=== PATIENT | male | born 2005 | race Caucasian/White ===

== ENCOUNTER 2024-01-08 23:36 | Emergency (ER) | payer BC, SELFPAY ==
[2024-01-08 23:54] VITALS: BP 144/100; PULSE 99; RESP 16; TEMP 36.9; O2SAT 96; BMI 30.4
[2024-01-09 00:11] LABS: Amphetamine Screen Urine Negative (Negative); Barbiturate Screen Urine Negative (Negative); Benzodiazepines Screen Urine Negative (Negative); Cannabinoid Screen Urine Negative (Negative); Cocaine Screen Urine Negative (Negative); Methadone Screen Urine Negative (Negative); Methamphetamines Screen Urine Negative (Negative); Opiate Screen Urine Negative (Negative); Oxycodone Screen Urine Negative (Negative); Phencyclidine Screen Urine Negative (Negative); Tricyclic Antidepressant Urine Negative (Negative)
[2024-01-09 00:30] LABS: SARS PCR* Negative SARS-CoV-2 (Negative)
--- OUTSIDE RECORDS SUMMARY | 2024-01-09 00:33 | XMS_ITS | Continuity of Care Document ---
Author Organization [facility] Address [address] [place] [address] Care Team Providers Care Analytical Research Chemist Name Role Phone [facility] Primary Care Provider Assessment No assessment recorded. Plan of Treatment Reminders Order Date Submit Date Provider Last Modified By Organization Details Last Modified Time Details Appointments ESTABLISH ED 10 2023 03:40P M Not available Not available Not available Lab urinalysi s, dipstick 2023 024 [facility], [facility], [place] [address], [place], [address], 12/24/2023 16:38:45 Referral None recorded. Procedures bladder scan (PROC) 2023 024 [facility], [facility], [address] [facility], [place], [address], 12/24/2023 16:38:43 Surgeries None recorded. Imaging None recorded. Medication Orders oxybutyni n chloride ER 10 mg tablet,ex tended release 24 hr 2023 024 [facility], [address] [place] [address], [place], [address], 12/24/2023 17:18:44 Patient TargetsNo targets recorded. Patient Instructions Encounter Date Encounter Id Patient Instructions Last Modified By Organization Details Last Modified Time 12/24/2023 [id number] will try adding oxybutynin ER 10mg daily continue gemtesa and plan recheck in 6 weeks. Not available 12/24/2023 16:57:40 Reason for Referral None Reported. Results Created Date Observation Date Name Description Value Unit Range Abnormal Flag LastModifiedBy Organization Detail LastModifiedTime 12/24/19 24 12/24/2023 bladd er scan (PROC ) Volume (in mL) 89 Not Available [address], [place], [address], 12/13/2023 10:44:18 12/24/19 24 12/24/2023 urina lysis , dipst ick Color-Status Yellow Not Available [address], [place], [address], 12/13/2023 10:44:17 12/24/19 24 12/24/2023 urina lysis , dipst ick Clarity-Stat us Clear Not Available [address], [place], [address], 12/13/2023 10:44:17 12/24/19 24 12/24/2023 urina lysis , dipst ick Sp [place]-Stat us 1.020 Not Available [address], [place], [address], 12/13/2023 10:44:17 12/24/19 24 12/24/2023 urina lysis , dipst ick pH-Status 6.5 Not Available [address], [place], [address], 12/13/2023 10:44:17 12/24/19 24 12/24/2023 urina lysis , dipst ick Nitrates-Sta tus negati ve Not Available [address], [place], [address], 12/13/2023 10:44:17 12/24/19 24 12/24/2023 urina lysis , dipst ick Blood-Status Negati ve Not Available [address], [place], [address], 12/13/2023 10:44:17 12/24/19 24 12/24/2023 urina lysis , dipst ick Leuko-Status Negati ve Not Available [address], [place], [address], 12/13/2023 10:44:17 12/24/19 24 12/24/2023 urina lysis , dipst ick Specimen Type Voided Not Available [address], [place], [address], 12/13/2023 10:44:17 Result Notes None recorded. Problems Name Status Onset Date Resolution Date Notes Provider Name and Address Organization Details Recorded Time Varicocele visible through skin Active 02/23/20 23 Moody Dawn MD [address] [place] [address], [phone], [facility] 02/22/2023 16:54:19 Nocturnal enuresis Active 11/14/19 24 Danny Pickard MD [address] [place] [address], [address], [facility] 11/14/2023 10:21:45 Problem Notes None recorded. Procedures Surgical History Date Name Laterality Status Provider Name and Address Organization Details Recorded Time Bladder Scan completed Danny Pickard MD [address] [place] [address], [address], [facility] 12/24/2023 16:37:09 Imaging Results None recorded. Procedure Notes None recorded. Medical Equipment None Reported. Allergies No known drug allergies Medications Name Sig Start Date Stop Date Status Note LastModified by Organization Details LastModified Time amoxicillin 500 mg capsule TAKE ONE CAPSULE BY MOUTH THREE TIMES DAILY UNTIL GONE. 02/22 completed Not Available Not Available Not Available oxybutynin chloride ER 10 mg tablet,exte nded release 24 hr TAKE ONE TABLET BY MOUTH EVERY DAY FOR 30 DAYS active Not Available Not Available No t Available ibuprofen 800 mg tablet TAKE ONE TABLET BY MOUTH EVERY 6-8 HOURS NEEDED FOR PAIN 02/22 completed Not Available Not Available Not Available citalopram 10 mg tablet TAKE 1 TABLET BY MOUTH DAILY FOR 6 DAYS. THEN INCREASE TO 2 TABLETS DAILY 02/22 completed Not Available Not Available Not Available hydrocodone 5 mg-acetamin ophen 325 mg tablet TAKE ONE TABLET BY MOUTH EVERY 4 TO 6 HOURS NEEDED FOR PAIN NOT RELIEVED WITH NSAIDS 02/22 completed Not Available Not Available Not Available desmopressi n 0.2 mg tablet TAKE TWO TABLETS BY MOUTH ONE HOUR BEFORE BED 11/13 completed Not Available Not Available Not Available sertraline 100 mg tablet TAKE 1 TABLET (100 MG) BY MOUTH EVERY MORNING. active Not Available Not Available No t Available citalopram 20 mg tablet TAKE 1 TABLET (20 MG) BY MOUTH EVERY MORNING. 11/13 completed Not Available Not Available Not Available methylpredn isolone 4 mg tablets in a dose pack TAKE DIRECTED. START A.M. OF 07/06/2202/22 completed Not Available Not Available Not Available sertraline 50 mg tablet TAKE 1 TABLET (50 MG) BY MOUTH EVERY MORNING. 11/13 completed Not Available Not Available Not Available Vitamin D3 50 mcg (2,000 unit) capsule Take 2 capsules by oral route. active Not Available Not Available No t Available Gemtesa 75 mg tablet Take 1 tablet every day by oral route. active Not Available Not Available No t Available Vitals Date Recorded Body height Body mass index (BMI) Percentile per age and sex Body mass index (BMI) Body weight Provider Name and Address Organization Details Last Updated DateTime 12/24/2023 175.26 cm 94 % 29.5 kg/m2 35234.47 g Danny Pickard MD [address] [place] [address],[address], [place], [address], [facility] 12/24/2023 16:35:21 Social History Question Answer Notes LastModified by Organizat ion Details LastModified Time Tobacco Smoking Status Never [facility]/22/2023 15:33:50 What Is Your Level Of Alcohol Consumption? None Information not available 02/22/2023 What Is Your Level Of Caffeine Consumption? Heavy [email or web address] Information not available 11/14/2023 What Was The Date Of Your Most Recent Tobacco Screening? 12/24/2023 [email or web address] Information not available 12/24/2023 Do You Use Any Illicit Or Recreational Drugs? No Information not available 02/22/2023 Has Tobacco Cessation Counseling Been Provided? No Information not available 02/22/2023 Do You Or Have You Ever Used Any Other Forms Of Tobacco Or Nicotine? No Information not available 02/22/2023 Sex: Unknown Functional Status None recorded. Mental Status None recorded. Family History Relationship Description Onset Age of this Age Resolved Age Notes Maternal Grandmother Malignant melanoma Notes:None per patient Medical History Condition Response Sexually Transmitted Infection N Diabetes N Other N Bleeding Disorder N High Blood Pressure N Kidney Stones N High Cholesterol N GERD/Acid Reflux N Heart Disease N Cancer N Depression Y Lung Disease N Immunizations Vaccine Type Date Status Provider Name and Address Organization Details Recorded Time HPV9 12/02/2015 completed Maddison viveros [facility] 06/14/2023 15:18:28 HPV9 12/14/2016 completed Maddison viveros [facility] 06/14/2023 15:18:28 MMR 09/17/2005 completed Maddison viveros [facility] 06/14/2023 15:18:28 [facility] 09/20/2009 completed Maddison viveros [facility] 06/14/2023 15:18:28 COVID-19, mRNA, LNP-S, PF, 30 mcg/0.3 mL dose 09/29/2020 completed Maddison viveros [facility] 06/14/2023 15:18:28 COVID-19, mRNA, LNP-S, PF, 30 mcg/0.3 mL dose 10/20/2020 ashley viveros [facility] 06/14/2023 15:18:28 COVID-19, mRNA, LNP-S, PF, 30 mcg/0.3 mL dose, kayli-sucrose 07/24/2021 completed Maddison viveros, [facility] 06/14/2023 15:18:28 pneumococcal conjugate PCV 7 2004 completed Maddison Faustin null, [facility] 06/14/2023 15:18:28 pneumococcal conjugate PCV 7 12/24/2005 completed Maddison Faustin null, [facility] 06/14/2023 15:18:28 pneumococcal conjugate PCV 7 01/12/2005 completed Maddison Faustin null, [facility] 06/14/2023 15:18:28 pneumococcal conjugate PCV 7 03/30/2005 completed Maddison Faustin null, [facility] 06/14/2023 15:18:28 DTaP-IPV 09/20/2009 completed Maddison viveros, [facility] 06/14/2023 15:18:28 Tdap 12/02/2015 completed Maddison viveros, [facility] 06/14/2023 15:18:28 varicella 09/17/2005 completed Maddison viveros, [facility] 06/14/2023 15:18:28 varicella 09/20/2009 completed Maddison viveros, [facility] 06/14/2023 15:18:28 Influenza, split virus, trivalent, preservative 04/01/2006 completed Maddison viveros, [facility] 06/14/2023 15:18:28 Influenza, split virus, trivalent, preservative 04/29/2006 completed Maddison Faustin null, [facility] 06/14/2023 15:18:28 Hep A, ped/adol, 2 dose 10/09/2013 [facility] 15:18:28 Hep A, ped/adol, 2 dose 11/09/2011 completed Maddison viveros, [facility] 06/14/2023 15:18:28 [facility]OMP) 2004 [facility] 15:18:28 Hib (PRP-OMP) 12/24/2005 completed Maddison Herreradimpleauer null, [facility] 06/14/2023 15:18:28 Hib (PRP-OMP) 01/12/2005 completed Maddison Herreradimpleauer null, [facility] 06/14/2023 15:18:28 Meningococcal MCV4O 12/02/2015 completed Maddison Herreradimpleauer null, [facility] 06/14/2023 15:18:28 Meningococcal MCV4O 01/19/2022 completed Maddison Herrerarbauer null, [facility] 06/14/2023 15:18:28 DTaP 12/24/2005 completed Maddison Herreradimpleauer null, [facility] 06/14/2023 15:18:28 DTaP-Hep B-IPV 2004 completed Maddison Herreradimpleauer null, [facility] 06/14/2023 15:18:28 DTaP-Hep B-IPV 01/12/2005 completed Maddison Herreradimpleauer null, [facility] 06/14/2023 15:18:28 DTaP-Hep B-IPV 03/30/2005 completed Maddison Herreradimpleauer null, [facility] 06/14/2023 15:18:28 Influenza, split virus, quadrivalent, PF 01/19/2022 completed Maddison Herreradimpleauer null, [facility] 06/14/2023 15:18:28 Influenza, split virus, quadrivalent, PF 02/01/2023 completed Maddisonadam Herreradimpleauer null, [facility] 06/14/2023 15:18:28 Past Encounters Encounter ID Performer Location Encounter Start Date Encounter Closed Date Diagnosis/Indication Diagnosis SNOMED-CT Code [id number] Danny Pickard MD _[facility] e [facility] [address] [place] [address] 12/24/2023 15:54:41 12/30/2023 15:39:13 Varicocele visible through skin [id number] Nocturnal enuresis 27946 08 Health Concerns Section Related Observation LastModified by Organization Detai ls LastModified Time None Recorded Concern Status LastModified by Organization Details LastModified Time None Recorded Payers Encounter Date Sequence Insurance Name Policy Number Policy Jewell Covered Member ID Jewell Member ID Guarantor Name 12/24/2023 1 [place] [id number] Amparo Betancourt [id number] Dave Betancourt Notes Date Note Type Note Provider Name and Address Organization Details Recorded Time 12/24/2023 text/html HPI Notes: follow up enuresis, daytime doing fine and wetting most nights. taking gemtesa samples UA clear and PVR 89ml today. Danny Pickard MD [address] [place] [address],[facility] [address], [place], [address], [facility] 12/24/2023 16:57:55
--- OUTSIDE RECORDS SUMMARY | 2024-01-09 00:33 | XMS_ITS | Data Portability ---
Author Organization [place] [facility] Address [address] [facility] [address] [place] [address] Care Team Providers Care Insurance Claim Auditor Name Role Phone [facility]) Primary Care Provider Assessment No assessment recorded. Plan of Treatment Reminders Order Date Submit Date Provider Last Modified By Organization Details Last Modified Time Details Appointments ESTABLISH ED 10 2023 03:40P M Not available Not available Not available Lab urinalysi s, dipstick 2023 024 [email or web address] [facility], [facility], [address] [facility], [place], [address], 11/14/2023 10:24:22 urinalysi s, dipstick 2023 024 [facility], [facility], [address], [place], [address], 12/24/2023 16:38:45 Referral None recorded. Procedures bladder scan (PROC) 2023 024 SANDEEP [facility], [address] [facility], [address], [place], [address], 11/18/2023 09:40:55 bladder scan (PROC) 2023 024 [facility], [facility], [address], [place], [address], 12/24/2023 16:38:43 Surgeries None recorded. Imaging US, duplex, scrotum, complete 2022 [facility], [address], [place], [address], 06/14/2023 13:19:04 Medication Orders oxybutyni n chloride ER 10 mg tablet,ex tended release 24 hr 2023 [facility], [address], [place], [address], 12/24/2023 17:18:44 Patient TargetsNo targets recorded. Patient Instructions Encounter Date Encounter Id Patient Instructions Last Modified By Organization Details Last Modified Time 02/22/2023 [id number] Exam suggests left varicocele. I've asked Dave to continue self-exams and we'll update a scrotal US in 3 months, and have them assess the mass found with duplex, to confirm my exam findings. Reassurance given. I'll see him for repeat exam after US performed. Not available 02/22/2023 16:55:38 06/14/2023 [id number] Unchanged exam, unbothered patient, reassuring / unchanged imaging. We reviewed elective excision (just because), but neither he nor I have a meaningful reason to do it. He'll observe, serially examine, optional repeat US / exam with me in Feb 2024, sooner should things change. Not available 06/14/2023 15:38:38 11/14/2023 [id number] will try gemtesa and recheck in 6 weeks. [email or web address] Not available 11/14/2023 11:13:37 12/24/2023 [id number] will try adding oxybutynin ER 10mg daily continue gemtesa and plan recheck in 6 weeks. [email or web address] Not available 12/24/2023 16:57:40 Reason for Referral None Reported. Results Created Date Observation Date Name Description Value Unit Range Abnormal Flag LastModifiedBy Organization Detail LastModifiedTime 11/14/19 24 11/14/2023 urina lysis , dipst ick Sp Palmetto-Stat us >=1.03 0 Not Available [address], [place], [address], 11/14/2023 10:15:21 11/14/19 24 11/14/2023 urina lysis , dipst ick pH-Status 5.5 Not Available [address], [place], [address], 11/14/2023 10:15:21 11/14/19 24 11/14/2023 urina lysis , dipst ick Urobilinogen -Status 0.2 Not Available [address], [place], [address], 11/14/2023 10:15:21 11/18/19 24 11/18/2023 bladd er scan (PROC ) Volume (in mL) 166 mL Not Available [address], [place], [address], 11/14/2023 10:21:56 12/24/19 24 12/24/2023 bladd er scan (PROC ) Volume (in mL) 89 Not Available [address], [place], [address], 12/13/2023 10:44:18 12/24/19 24 12/24/2023 urina lysis , dipst ick Color-Status Yellow Not Available [address], [place], [address], 12/13/2023 10:44:17 12/24/19 24 12/24/2023 urina lysis , dipst ick Clarity-Stat us Clear Not Available [address], [place], [address], 12/13/2023 10:44:17 12/24/19 24 12/24/2023 urina lysis , dipst ick Sp Palmetto-Stat us 1.020 Not Available [address], [place], [address], 12/13/2023 10:44:17 12/24/19 24 12/24/2023 urina lysis , dipst ick pH-Status 6.5 Not Available [address], [place], [address], 12/13/2023 10:44:17 12/24/19 24 12/24/2023 urina lysis , dipst ick Nitrates-Sta tus negati ve Not Available [address], [place], [address], 12/13/2023 10:44:17 12/24/19 24 12/24/2023 urina lysis , dipst ick Blood-Status Negati ve Not Available [address], [place], [address], 12/13/2023 10:44:17 12/24/19 24 12/24/2023 urina lysis , dipst ick Leuko-Status Negati ve Not Available [address], [place], [address], 12/13/2023 10:44:17 12/24/19 24 12/24/2023 urina lysis , dipst ick Specimen Type Voided Not Available [address], [place], [address], 12/13/2023 10:44:17 02/21/20 23 02/12/2023 US, scrot um No observ ation record ed. Not Available 02/20/2023 11:48:11 05/16/20 23 05/16/2023 US, scrot um No observ ation record ed. SANDEEP Damari Guardadofield [address] [facility], [place], [address], 05/17/2023 12:02:22 06/14/19 24 05/16/2023 US, duple x, scrot um, compl ete No observ ation record ed. [email or web address] [address] [facility], [place], [address], 06/14/2023 13:19:04 Result Notes None recorded. Problems Name Status Onset Date Resolution Date Notes Provider Name and Address Organization Details Recorded Time Varicocele visible through skin Active 02/23/20 23 Moody Dawn MD [address] [place] [address],[address], [address], [facility] 02/22/2023 16:54:19 Nocturnal enuresis Active 11/14/19 24 Danny Pickard MD [address] [place] [address],[facility] [address], [place], [address], [facility] 11/14/2023 10:21:45 Problem Notes None recorded. Procedures Surgical History Date Name Laterality Status Provider Name and Address Organization Details Recorded Time Bladder Scan completed Danny Pickard MD [address] [place] [address],[facility] [address], [place], [address], [facility] 12/24/2023 16:37:09 Imaging Results Imaging Date Name Status LastModified by Organiz ation Details LastModified Time 02/12/2023 US, scrotum completed Information n ot available 02/20/2023 11:48:11 05/16/2023 US, scrotum completed SANDEEP Guardado ield [address] [facility], [place], [address], 05/17/2023 12:02:22 05/16/2023 US, duplex, scrotum, complete completed [email or web address] [facility] [address], [place], [address], 06/14/2023 13:19:04 Procedure Notes None recorded. Medical Equipment None [...] Recorded Body height Body mass index (BMI) Body mass index (BMI) Percentile per age and sex Body weight Provider Name and Address Organization Details Last Updated DateTime 02/22/2023 172.72 cm 30.4 kg/m2 97 % 67627.47 g Valerie Gaspar [facility] 02/22/2023 15:32:32 Date Recorded Body height Body mass index (BMI) Body mass index (BMI) Percentile per age and sex Body weight Provider Name and Address Organization Details Last Updated DateTime 06/14/2023 172.72 cm 30.4 kg/m2 95.54 % 73495.47 g Maddison Herrerasailaja [facility] 06/14/2023 15:18:23 Date Recorded Body height Body mass index (BMI) Percentile per age and sex Body mass index (BMI) Body weight Provider Name and Address Organization Details Last Updated DateTime 11/14/2023 175.26 cm 94 % 29.5 kg/m2 75217.47 g Danny Pickard MD [address] [place] [address] 11/14/2023 10:00:28 Date Recorded Body height Body mass index (BMI) Percentile per age and sex Body mass index (BMI) Body weight Provider Name and Address Organization Details Last Updated DateTime 12/24/2023 175.26 cm 94 % 29.5 kg/m2 48133.47 g Danny Pickard MD [address] [place] [address],[address] 12/24/2023 16:35:21 Social History Question Answer Notes LastModified by Organizat ion Details LastModified Time Tobacco Smoking Status Never [facility]oker [facility] 15:33:50 What Is Your Level Of Alcohol Consumption? None Information not available 02/22/2023 What Is Your Level Of Caffeine Consumption? Heavy Information not available 11/14/2023 What Was The Date Of Your Most Recent Tobacco Screening? 12/24/2023 [email or web address] Information not available 12/24/2023 Do You Use [...] Notes:None per patient Medical History Condition Response Diabetes N Sexually Transmitted Infection N Other N Bleeding Disorder N High Blood Pressure N Kidney Stones N Cancer N Lung Disease N Depression Y High Cholesterol N GERD/Acid Reflux N Heart Disease N Immunizations Vaccine Type Date Status Provider Name and Address Organization Details Recorded Time HPV9 12/02/2015 completed Maddison viveros [facility] 06/14/2023 15:18:28 HPV9 12/14/2016 [facility]23 15:18:28 MMR 09/17/2005 [facility] 15:18:28 MMR 09/20/2009 completed Maddison viveros [facility] 06/14/2023 15:18:28 COVID-19, mRNA, LNP-S, PF, 30 mcg/0.3 mL dose 09/29/2020 completed Maddison viveros [facility] 06/14/2023 15:18:28 COVID-19, mRNA, LNP-S, PF, 30 mcg/0.3 mL dose 10/20/2020 completed Maddison viveros [facility] 06/14/2023 15:18:28 COVID-19, mRNA, LNP-S, PF, 30 mcg/0.3 mL dose, kayli-sucrose 07/24/2021 completed Maddison viveros [facility] 06/14/2023 15:18:28 pneumococcal conjugate PCV 7 2004 [facility]23 15:18:28 pneumococcal conjugate PCV 7 12/24/2005 completed Maddison viveros [facility] 06/14/2023 15:18:28 pneumococcal conjugate PCV 7 01/12/2005 [facility] 15:18:28 pneumococcal conjugate PCV 7 03/30/2005 completed Maddison Faustin null, [facility] 06/14/2023 15:18:28 DTaP-IPV 09/20/2009 completed Maddison Faustin null, [facility] 06/14/2023 15:18:28 Tdap 12/02/2015 completed Maddison Faustin null, [facility] 06/14/2023 15:18:28 varicella 09/17/2005 completed Maddison Faustin null, [facility] 06/14/2023 15:18:28 varicella 09/20/2009 completed Maddison Faustin null, [facility] 06/14/2023 15:18:28 Influenza, split virus, trivalent, preservative 04/01/2006 completed Maddison Faustin null, [facility] 06/14/2023 15:18:28 Influenza, split virus, trivalent, preservative 04/29/2006 completed Maddison Faustin null, [facility] 06/14/2023 15:18:28 Hep A, ped/adol, 2 dose 10/09/2013 completed Maddison Faustin null, [facility] 06/14/2023 15:18:28 Hep A, ped/adol, 2 dose 11/09/2011 completed Maddison Faustin null, [facility] 06/14/2023 15:18:28 Hib (PRP-OMP) 2004 completed Maddison Faustin null, [facility] 06/14/2023 15:18:28 Hib (PRP-OMP) 12/24/2005 completed Maddison Mosesauer null, [facility] 06/14/2023 15:18:28 Hib (PRP-OMP) 01/12/2005 completed Maddison Faustin null, [facility] 06/14/2023 15:18:28 Meningococcal MCV4O 12/02/2015 completed Maddison Faustin null, [facility] 06/14/2023 15:18:28 Meningococcal MCV4O 01/19/2022 completed [facility]ustin null, [facility] 06/14/2023 15:18:28 DTaP 12/24/2005 completed Maddison Ramin jackeline, [facility] 06/14/2023 15:18:28 DTaP-Hep B-IPV 2004 completed Maddison Ramin jackeline, [facility] 06/14/2023 15:18:28 DTaP-Hep B-IPV 01/12/2005 completed Maddison Ramin null, [facility] 06/14/2023 15:18:28 DTaP-Hep B-IPV 03/30/2005 completed Maddison Ramin null, [facility] 06/14/2023 15:18:28 Influenza, split virus, quadrivalent, PF 01/19/2022 completed Maddison Ramin jackeline, [facility] 06/14/2023 15:18:28 Influenza, split virus, quadrivalent, PF 02/01/2023 completed Maddison Ramin jackelien, [facility] 06/14/2023 15:18:28 Past Encounters Encounter ID Performer Location Encounter Start Date Encounter Closed Date Diagnosis/Indication Diagnosis SNOMED-CT Code [id number] Moody Dawn MD _[place] [address] [place] [address] 02/22/2023 15:05:16 02/28/2023 12:02:18 Varicocele visible through skin 776919668 [id number] Moody Dawn MD [facility] [address] [place] [address] 06/14/2023 15:14:28 06/14/2023 15:42:51 Varicocele visible through skin 429849589 [id number] Danny Pickard MD [facility] [address] [facility],[address] [place] [address] 11/14/2023 09:47:56 11/15/2023 09:03:26 Varicocele visible through skin 165120389 Nocturnal enuresis 96675 08 [id number] Danny Pickard MD [facility] [address] [facility],[address] [place] [address] 12/24/2023 15:54:41 12/30/2023 15:39:13 Varicocele visible through skin 575557139 Nocturnal enuresis 90871 08 Health Concerns Section Related Observation LastModified by Organization Detai ls LastModified Time None Recorded Concern Status LastModified by Organization Details LastModified Time None Recorded Advance Directives Directive None Recorded Payers Encounter Date Sequence Insurance Name Policy Number Policy Jewell Covered Member ID Jewell Member ID Guarantor Name 02/22/2023 2 [place] [id number] Dave De La Rosa Betancourt [id number] Dave Betancourt 02/22/2023 1 [place] [id number] Amparo Rj Betancourt [id number] Dave Betancourt 06/14/2023 1 [place] [id number] Amparo Rj Betancourt [id number] Dave Betancourt 06/14/2023 2 [place] [id number] Dave De La Rosa Betancourt [id number] Dave De La Rsoa Betancourt 11/14/2023 1 [place] [id number] Amparo Rj Betancourt [id number] Dave Betancourt 12/24/2023 1 [place] [id number] Amparo De La Rosa Betancourt [id number] Dave Betancourt Notes Date Note Type Note Provider Name and Address Organization Details Recorded Time 02/22/2023 text/html HPI Notes: 17M presents after recent discovery of mass inside left scrotum (in Jan). Scrotal US obtained which showed normal testes/flow, and a soft tissue mass 3cm adjacent to the left testis. Imaging suggests cystic structures, I see no duplex was done on the mass in question. Patient has no complaints. Moody Dawn MD [address] [facility],[address], [place], [address], [facility] 02/22/2023 16:55:44 06/14/2023 text/html HPI Notes: 17M following up for left hemiscrotal mass, palpated as a varicocele to me, in Feb 2023. Scrotal US obtained which showed normal testes/flow, and a soft tissue mass 3cm adjacent to the left testis. Imaging suggests cystic structures. Interval repeat shows stability, no internal echoing or Doppler evidence noted. Patient has no complaints, and think the exam is unchanged. Moody Dawn MD [address] [facility],[address], [place], [address], [facility] 06/14/2023 15:38:44 11/14/2023 text/html HPI Notes: anali dino for a new problem today- started to have worsening enuresis about 5 months ago. happens almost every night. daytime control is OK but has urgency. UA clear and PVR 166ml today. no heme/dysuria. no trouble with bowel control Danny Pickard MD [address] [facility],[address], [place], [address], [facility] 11/14/2023 10:25:19 12/24/2023 text/html HPI Notes: follo w up enuresis, daytime doing fine and wetting most nights. taking gemtesa samples UA clear and PVR 89ml today. Danny Pickard MD [address] [facility],[address], [place], [address], [facility] 12/24/2023 16:57:55
--- OUTSIDE RECORDS SUMMARY | 2024-01-09 00:34 | XMS_ITS | Patient Health Record ---
Author Organization [facility] Address [address] [facility] [address] [place] [address] Care Team Providers Care Underwriting Analyst Name Role Phone Igor MALAGON, David Primary Care Provider AFUA MEJIA, HARINDER, DAVID Unavailable Allergies Allergen (clinical drug ingredient) Drug/Non Drug Allergy documented on EMR Reaction Allergy Type Onset Date Status nickel Nickel ? Allergy Active Reason For Referral No Information Medications Medication SIG (Take, Route, Fr equency, Duration) Notes Start Date End Date Status Citalopram Hydrobromide Active Problems Problem Type SNOMED Code ICD Code Onset Dates Problem Status W/U Status Risk Notes Problem Tourette's disorder (6609142) Tourette's disorder (307.23) Active confirmed Problem Constipation (91111726) Constipation (K59.00) Active confirmed Problem Urgent desire to urinate (44274478) Urinary urgency (R39.15) Active confirmed Problem Nocturnal enuresis (6834825) Nocturnal Enuresis (N39.44) Active confirmed Problem Urinary incontinence (675018148) Urinary incontinence (R32) Active confirmed Problem Disorder of kidney and/or ureter (772711325) 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 confirmed Problem Voiding dysfunction (877646199) Voiding dysfunction (N39.8) Active confirmed Plan Of Treatment Future Test Test Name Order Date US Renal (SASHA) 02/01/2017 Insurance Providers Payer Name Payer Address Payer Phone Subscriber Number Group Number Insured Name Patient Relationship to Insured Coverage Start Date Coverage End Date [facility] [address] [address] [place] [phone] [id number] Dave Betancourt Self - patient is the insured Medical (General) History Medical History History ICD Code Born @ full term, 6 lb 6 oz Neurological: Tourette's Gastrointestinal: Constipation Gennitourinary: Nocturnal en uresis, Dysfunctional voiding, Urinary incontinence, Uriinary urgency, Pelviectasis Other: Mood & affect disturbance Surgical History Surgery Date(Month/Year) BMT's 07/23 BMT's 11/26 Undescended testicle completed in [facility] 2009 Hospitalization History Reason Date(Month/Year) Dehydration
--- OUTSIDE RECORDS SUMMARY | 2024-01-09 00:34 | XMS_ITS | Continuity of Care Document ---
Author Organization [facility], [facility] Address [address] [place] [address] Care Team Providers Care Critical Care Physician Name Role Phone ABEBA GUERRERO (SOPHY) Primary Care Provider Assessment No assessment recorded. Plan of Treatment Reminders Order Date Submit Date Provider Last Modified By Organization Details Last Modified Time Details Appointments ESTABLISH ED 10 2023 03:40P M Not available Not available Not available Lab urinalysi s, dipstick 2023 024 [email or web address] [facility], [address], [address], [place], [address], 11/14/2023 10:24:22 Referral None recorded. Procedures bladder scan (PROC) 2023 024 [email or web address] [facility], [address], [address], [place], [address], 11/18/2023 09:40:55 Surgeries None recorded. Imaging None recorded. Medication Orders None recorded. Patient TargetsNo targets recorded. Patient Instructions Encounter Date Encounter Id Patient Instructions Last Modified By Organization Details Last Modified Time 11/14/2023 [id number] will try gemtesa and recheck in 6 weeks. [email or web address] Not available 11/14/2023 11:13:37 Reason for Referral None Reported. Results Created Date Observation Date Name Description Value Unit Range Abnormal Flag LastModifiedBy Organization Detail LastModifiedTime 11/14/19 24 11/14/2023 urina lysis , dipst ick Sp Jackson-Stat us >=1.03 0 Not Available [address], [place], [address], 11/14/2023 10:15:21 11/14/19 24 11/14/2023 urina lysis , dipst ick pH-Status 5.5 Not Available [address], [place], [address], 11/14/2023 10:15:21 11/14/19 24 11/14/2023 urina lysis , dipst ick Urobilinogen -Status 0.2 Not Available [address], [place], [address], 11/14/2023 10:15:21 11/18/19 24 11/18/2023 bladd er scan (PROC ) Volume (in mL) 166 mL Not Available [address], [place], [address], 11/14/2023 10:21:56 Result Notes None recorded. Problems Name Status Onset Date Resolution Date Notes Provider Name and Address Organization Details Recorded Time Varicocele visible through skin Active 02/23/20 23 Moody Dawn MD [address] [place] [address], [phone], [facility] 02/22/2023 16:54:19 Nocturnal enuresis Active 11/14/19 24 Danny Pickard MD [address] [place] [address], [phone], [facility] 11/14/2023 10:21:45 Problem Notes None recorded. Procedures Surgical History Date Name Laterality Status Provider Name and Address Organization Details Recorded Time Bladder Scan completed Danny Pickard MD [address] [place] [address], [phone], [facility] 12/24/2023 16:37:09 Imaging Results None recorded. Procedure [...] 11/14/2023 175.26 cm 94 % 29.5 kg/m2 85201.47 g Danny Pickard MD [address] [place] [address],[address], [place], [address], [facility] 11/14/2023 10:00:28 Social History Question Answer Notes LastModified by Organizat ion Details LastModified Time Tobacco Smoking Status Never Smoker Valerie viveros, [facility] 02/22/2023 15:33:50 What Is Your Level Of Alcohol Consumption? None Information not available 02/22/2023 What Is Your Level Of Caffeine Consumption? Heavy [email or web address] Information not available 11/14/2023 What Was The Date Of Your Most Recent Tobacco Screening? 12/24/2023 Information not available 12/24/2023 Do You Use [...] Recorded Time HPV9 12/02/2015 completed Maddison viveros [facility] 06/14/2023 15:18:28 HPV9 12/14/2016 completed Maddison viveros [facility] 06/14/2023 15:18:28 [facility]17/2005 [facility] 15:18:28 [facility]20[facility] 15:18:28 COVID-19, mRNA, LNP-S, PF, 30 mcg/0.3 mL dose 09/29/2020 completed Maddison viveros [facility] 06/14/2023 15:18:28 COVID-19, mRNA, LNP-S, PF, 30 mcg/0.3 mL dose 10/20/2020 completed Maddison Mosesauer null, [facility] 06/14/2023 15:18:28 COVID-19, mRNA, LNP-S, PF, 30 mcg/0.3 mL dose, kayli-sucrose 07/24/2021 completed Maddison Herrerarbauer null, [facility] 06/14/2023 15:18:28 pneumococcal conjugate PCV 7 2004 completed Maddison Mosesauer null, [facility] 06/14/2023 15:18:28 pneumococcal conjugate PCV 7 12/24/2005 completed Maddison Osterbauer null, [facility] 06/14/2023 15:18:28 pneumococcal conjugate PCV 7 01/12/2005 completed Maddison Mosesauer null, [facility] 06/14/2023 15:18:28 pneumococcal conjugate PCV 7 03/30/2005 completed Maddison Mosesauer null, [facility] 06/14/2023 15:18:28 DTaP-IPV 09/20/2009 completed Maddison Mosesauer null, [facility] 06/14/2023 15:18:28 Tdap 12/02/2015 completed Maddison Mosesauer null, [facility] 06/14/2023 15:18:28 varicella 09/17/2005 completed Maddison Mosesauer null, [facility] 06/14/2023 15:18:28 varicella 09/20/2009 completed Maddison Mosesauer null, [facility] 06/14/2023 15:18:28 Influenza, split virus, trivalent, preservative 04/01/2006 completed Maddison Osterbauer null, [facility] 06/14/2023 15:18:28 Influenza, split virus, trivalent, preservative 04/29/2006 completed Maddison Mosesauer null, [facility] 06/14/2023 15:18:28 Hep A, ped/adol, 2 dose 10/09/2013 completed Maddison Mosesauer null, [facility] 06/14/2023 15:18:28 Hep A, ped/adol, 2 dose 11/09/2011 [facility] 15:18:28 Hib (PRP-OMP) 2004 completed Amddison Osterbauer null, [facility] 06/14/2023 15:18:28 Hib (PRP-OMP) 12/24/2005 completed Maddison Osterbauer null, [facility] 06/14/2023 15:18:28 Hib (PRP-OMP) 01/12/2005 completed Maddison Osterbauer null, [facility] 06/14/2023 15:18:28 Meningococcal MCV4O 12/02/2015 completed Maddison Osterbauer null, [facility] 06/14/2023 15:18:28 Meningococcal MCV4O 01/19/2022 completed Maddison Osterbauer null, [facility] 06/14/2023 15:18:28 DTaP 12/24/2005 completed Maddison Mosesauer null, [facility] 06/14/2023 15:18:28 DTaP-Hep B-IPV 2004 completed Maddison Herrerarbauer null, [facility] 06/14/2023 15:18:28 DTaP-Hep B-IPV 01/12/2005 completed Maddison Osterbauer null, [facility] 06/14/2023 15:18:28 DTaP-Hep B-IPV 03/30/2005 completed Maddison Osterbauer null, [facility] 06/14/2023 15:18:28 Influenza, split virus, quadrivalent, PF 01/19/2022 completed Maddison Herrerarbauer null, [facility] 06/14/2023 15:18:28 Influenza, split virus, quadrivalent, PF 02/01/2023 completed Maddison Osterbauer null, [facility] 06/14/2023 15:18:28 Past Encounters Encounter ID Performer Location Encounter Start Date Encounter Closed Date Diagnosis/Indication Diagnosis SNOMED-CT Code [id number] [facility] [place] [address] [place] [address] 11/14/2023 09:47:56 11/15/2023 09:03:26 Varicocele visible through skin 152687789 Nocturnal enuresis 86163 08 Health Concerns Section Related Observation LastModified by Organization Detai ls LastModified Time None Recorded Concern Status LastModified by Organization Details LastModified Time None Recorded Payers Encounter Date Sequence Insurance Name Policy Number Policy Jewell Covered Member ID Jewell Member ID Guarantor Name 11/14/2023 1 [place] [id number] Amparo De La Rosa Serafin [id number] Dave Betancourt Notes Date Note Type Note Provider Name and Address Organization Details Recorded Time 11/14/2023 text/html HPI Notes: seeing for a new problem today- started to have worsening enuresis about 5 months ago. happens almost every night. daytime control is OK but has urgency. UA clear and PVR 166ml today. no heme/dysuria. no trouble with bowel control Danny Pickard MD [address], [place], [address], [facility] 11/14/2023 10:25:19
--- OUTSIDE RECORDS SUMMARY | 2024-01-09 00:34 | XMS_ITS | Clinical Summary ---
Author Organization [facility] Address [place], [place] [address] Care Team Providers Care Broach Trouble Shooter Name Role Phone David Costa MD Primary Care Provider [phone] Allergies Active Allergy Reactions Criticality Noted Date Comments Nickel Contact Dermatitis 08/03/2022 Cysts/blisters Medications Medication Sig Dispensed Refills Start Date End Date Status desmopressin (DDAVP) 0.2 mg tablet TAKE 1-2 TABLETS BY MOUTH ONE HOUR BEFORE BED 90 DAYS 03/08/2022 Active zinc acetate (GALZIN) 50 mg (zinc) cap Take 50 mg by mouth once every other day. Active sertraline (ZOLOFT) 100 mg tabletIndications:Dep ression with anxiety TAKE 1 TABLET (100 MG) BY MOUTH EVERY MORNING. 90 Tablet 10/25/2023 Active Active Problems Problem Noted Date Diagnosed Date Depression with anxiety 08/06/2022 Tourette's 11/09/2011 Mood and affect disturbance 11/09/2011 Tic 10/23/2010 Nocturnal enuresis 10/23/2010 Nevus 10/23/2010 Overview: Brownish black nevus on back left of head that measures 8 mm in diameter as of 09/2013 and 12/2014. Middle ear infection 09/21/2008 Resolved Problems Problem Noted Date Diagnosed Date Resolved Date Middle ear infection 09/21/2008 009 Encounters Date Type Department Care Team Description 10/23/2023 Refill [facility] [address] [place] [address] David Costa MD Refill Request (Sertraline) from Last 3 Months Immunizations Name Administration Dates Next Due COVID-19 Vaccine Spikevax (M oderna 50mcg/0.5mL) 12YO+ [id number] Formula PF 05/01/2023 COVID-19 vaccine (Pfizer-Bio NTech 30mcg/0.3mL) 12YO+ RHEA-SUCROSE PF, MDV 07/24/2021 COVID-19 vaccine (Pfizer-Bio NTech 30mcg/0.3mL) PF, MDV 10/20/2020,09/29/2020 DTaP 12/24/2005 MOfX-GawO-BPF (Pediarix) 03/30/2005,01/12/2005,0 2004 DTaP-IPV (Kinrix) 09/20/2009 HIB PRP-OMP (PedvaxHIB) 12/24/2005,01/12/2005, HPV 9 (Gardasil 9) 12/14/2016,12/02/2015 Hepatitis A (Peds) 10/09/2013,11/09/2011 Influenza, IIV4 02/01/2023,01/19/2022 MMR 09/20/2009,09/17/2005 Meningococcal Vaccine (Menveo) 01/19/2022,2015 Pneumococcal conj 7-Valent (Prevnar 7) 0 12/24/2005,03/30/2005,01/12/2005,11/15 Tdap 12/02/2015 Varicella Vaccine 09/20/2009,09/17/2005 Social History Tobacco Use Types Packs/Day Years Used Date Smoking Tobacco: Never Passive Smoke Exposure: Never Smokeless Tobacco: Never Tobacco Cessation:Counseling Given: Not Answered Comments:No exposure Alcohol Use Standard Drinks/Week Comments No 0 (1 standard drink = 0.6 oz pur e alcohol) PHQ-2 Answer Date Recorded PHQ-2 TOTAL SCORE 3 05/01/2023 Social Connections Answer Date Recorded Frequency of Communication with Friends and Fami ly Not on file 01/20/2023 Financial Resource Strain Answer Date R ecorded Difficulty of Paying Living Expenses 3 01/19/2022 Difficulty of Paying Living Expenses Not on file 01/19/2022 Food Insecurity Answer Date Recorded Worried About Running Out of Food in the Last Ye ar 1 01/19/2022 Transportation Needs Answer Date Record ed Lack of Transportation (Medical) 1 01/19/2022 Housing Stability Answer Date Recorded Unable to Pay for Housing in the Last Year 1 01/19/2022 Sex and Gender Information Value Date Recorded Sex Assigned at Not on file Gender Identity Not on file Sexual Orientation Not on file Obstetrics History Last Filed Vital Signs Vital Sign Reading Time Taken Comments Blood Pressure 130/77 05/01/2023 3:49 PM 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 Pulse 80 05/01/2023 3:49 PM 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 Temperature 36.8 ??C (98.3 ??F) 05/01/2023 3:49 PM CS T Respiratory Rate 20 09/19/2010 9:02 AM CDT Oxygen Saturation 95% 05/01/2023 3:49 PM 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 Inhaled Oxygen Concentration - - Weight 93.4 kg (206 lb) 05/01/2023 3:49 PM 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 Height 170.2 cm (5' 7.01) 02/01/2023 3:46 PM CD T Body Mass Index - - Plan of Treatment Health Maintenance Due Date Last Done Comments HIV for age 15-65 09/16/2019 Hepatitis C screening for age 18-79 2022 Influenza for age 9-49 01/19/2024 02/01/2023, 2021 Well Child Check for age 3-20 01/19/2024 01/18/2023, 01/19/2022, 12/19/2018, Additional history exists BMI (ht and wt on same day) for age 18+ 02/02/2024 02/01/2023, 01/18/2023, 09/17/2022 Depression screening for age 12+ 05/01/2024 05/01/2023, 03/22/2023, 03/20/2023, Additional history exists Tetanus booster 12/01/2025 12/02/2015 Pneumococcal series for age 6-64 Aged Out 12/24/2005, 03/30/2005, 01/12/2005, Additional history exists No longer eligible based on patient's age to complete this topic Tdap Completed 12/02/2015 HPV series for age 9-26 Completed 12/14/2016, 12/01 Meningococcal series for age 11-21 Completed 01/19/2022, 12/02/2015 COVID-19 vaccine series Completed 05/01/20, 07/24/2021, 10/20/2020, Additional history exists Care Teams Broach Trouble Shooter Relationship Specialty Start Date End Date David Costa MD [address] [place] [address] PCP - General 10/08/05
--- NOTE | 2024-01-09 00:38 | ED.PSYCH ---
HPI - Psych General Date Seen: 01/09/24 <Andrei Morgan MD - Last Filed: 01/12/24 18:21> Chief Complaint: Psychiatric Problem/Disorder <Andrei Morgan MD - Last Filed: 01/12/24 18:21> Stated Complaint: Suicidal <Andrei Morgan MD - Last Filed: 01/12/24 18:21> Time Seen by Provider: 01/09/24 00:02 <Andrei Morgan MD - Last Filed: 01/12/24 18:21> Source: patient <Andrei Morgan MD - Last Filed: 01/12/24 18:21> Mode of arrival: ambulatory <Andrei Morgan MD - Last Filed: 01/12/24 18:21> Limitations: altered mental status <Andrei Morgan MD - Last Filed: 01/12/24 18:21> History of Present Illness HPI Narrative: Patient is a 18-year-old male with a long psychiatric history who comes in after holding a knife to his throat at his job about 4 hours ago. He tells me that the stress and demands of the job were too great and his boss was too demanding. He held a knife to his throat but did not cut himself. He then quit his job and went home for while. He wrote his mother notes and told her that he was coming to the ER to be admitted to the [facility]. He does not feel safe is worried that he will hurt himself. He has a long history of anxiety and depression. He tells me that he also has auditory hallucinations. He has a brother with bipolar disorder. He has never had a psychiatric admission. He does have a history of cutting but has not done that in many months. He takes sertraline 100 mg daily and melatonin for sleep. He is not on any other psychiatric medications. He has some type of obsession with shaving and tells me that there are times that he will shave in that an hour later feel the need to shave again. He has an overactive bladder in takes both oxybutynin and vibegron for that. He denies any drug or alcohol use. He was supposed to start college at [employer] next week but after quitting his job he contacted the school and dropped all of his classes. He says this was a spontaneous decision but he had been giving it some thought for a while. His PCP is Dr. Costa but he has not seen him in several months. He was working with a therapist but states that they mutually agreed to discontinue his visits a couple of months ago because he was doing so well. He denies missing any doses of his medication. Previous thoughts of suicide have involved jumping in front of a bus. His last job was at [employer] and he had to quit because the stress of that job was too much for him as well. Tonight when he was feeling overwhelmed at work it brought back memories of his last job. 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 <Andrei Morgan MD - Last Filed: 01/12/24 18:21> Related Data Home Medications: Home Medications ?Medication ?Instructions ?Recorded ?Confirmed oxybutynin chloride 10 mg 10 mg PO DAILY 01/08/24 01/08/24 tablet,extended release 24 hr sertraline 100 mg tablet 100 mg PO QAM 01/08/24 01/08/24 vibegron 75 mg tablet (Gemtesa) 75 mg PO DAILY 01/08/24 01/08/24 <Andrei Morgan MD - Last Filed: 01/12/24 18:21> Allergies/Adverse Reactions: Allergies Allergy/AdvReac Type Severity Reaction Status Date / Time nickel Allergy Mild Contact Verified 01/08/24 23:51 Dermatitis <Andrei Morgan MD - Last Filed: 01/12/24 18:21> Review of Systems Narrative: Outside of his mental illness his review of systems is otherwise noted to be negative. <Andrei Morgan MD - Last Filed: 01/12/24 18:21> [facility] Social History: Social History Smoking Status: Never smoker Do you use any of these nicotine containing products: None How often do you have a drink containing alcohol: never AUDIT-C Alcohol total score: 0 Non-prescribed substance use: denies use <Andrei Morgan MD - Last Filed: 01/12/24 18:21> Exam Narrative: Exam Narrative: Vitals noted. HEENT: Conjunctiva clear. Posterior pharynx is clear without erythema or exudate. Neck is supple without adenopathy, thyromegaly, carotid bruit. Lungs: Clear to auscultation in all taylor. No wheezes, rales, rhonchi. Heart: Regular rate and rhythm without murmur. Abdomen: Soft and nontender. No guarding, rigidity, rebound. Bowel sounds are normal. No palpable masses. Extremities: No cyanosis or edema. Good distal pulses. Skin: No abnormalities noted of the exposed skin. He has a bandage over the left side of his nose due to a recent cut while shaving. Neurologic: Awake, alert, fully oriented. Neurologic exam is nonfocal. He is tremulous. He is oriented to person, place, time. He denies any current auditory hallucinations. <Andrei Morgan MD - Last Filed: 01/12/24 18:21> Const: Vital Signs, click to edit/add: Vital Signs - 24 hr 01/08/24 23:54 01/09/24 01:53 Temperature 98.4 F Pulse Rate [Pulse Oximeter] 99 81 Respiratory Rate 16 16 Blood Pressure [Ri ght Upper Arm] 144/100 H Pulse Oximetry 96 97 Oxygen Delivery Me thod Room Air Room Air <Andrei Morgan MD - Last Filed: 01/12/24 18:21> Vital Signs, click to edit/add: Vital Signs - 24 hr 01/08/24 23:54 01/09/24 01:53 Temperature 98.4 F Pulse Rate [Pulse Oximeter] 99 81 Respiratory Rate 16 16 Blood Pressure [Ri ght Upper Arm] 144/100 H Pulse Oximetry 96 97 Oxygen Delivery Me thod Room Air Room Air <Luis Gilbert MD - Last Filed: 01/09/24 10:54> Course Course ED Course: Patient is seen and examined. He is cooperative. Labs are ordered. He is willing to stay voluntarily but I will put him on a hold if he attempts to leave. He is still actively suicidal and does not feel safe returning home. He has requested a dose of melatonin to help him sleep and that will be given. He will be interviewed by social science professor in the morning to help with placement. <Andrei Morgan MD - Last Filed: 01/12/24 18:21> Reevaluation(s) Reevaluation #1: With a dose of melatonin the patient was able to rest comfortably through the night. We are awaiting social group worker arrival. His care is turned over to Dr. Gilbert. <Andrei Morgan MD - Last Filed: 01/12/24 18:21> Reevaluation #2: Patient signed over to Dr. Gilbert at 7:30 a.m.-shift change. I recheck the patient at about 8:30 a.m.. He was awake, watching TV and just finished breakfast. He still voluntarily desiring mental health evaluation and placement. I ordered his home meds including oxybutynin ER and sertraline. Unfortunately he is also on the bag were on and that is not available hospital pharmacy. Therefore not ordered. He has no complaints. Were waiting for social Work to arrive for full assessment and to anticipate he will meet criteria for inpatient mental health admission. chrome worker would be able to help with placement, in that event. <Luis Gilbert MD - Last Filed: 01/09/24 10:54> Reevaluation #3: Recheck-10:45 a.m.. Discussed with social WorkAnisha. She has evaluated the patient and met with his mother. We agree that the patient does meet criteria for inpatient mental health care. He is still somewhat withdrawn. A little bit cryptic with some of his answers. Overall he is cooperative and the patient (and his mother) desires inpatient care. He is voluntarily requesting admission. He says he just does not feel safe at home. Laboratory workup is reassuring. Vitals are stable. He is medically clear for inpatient mental health evaluation. Unclear about what is his underlying diagnosis. I wonder if he may be possibly developing schizophrenia? Could be autism or autism spectrum? He was supposed to start college next week. Could this be an acute stress reaction due to the anticipated academic year? At this point he is still endorsing worry of self-harm without a specific plan. He is nonviolent. He is cooperative. He was holding a knife to his throat yesterday but fortunately did not suffer any injuries. Clinical impression 1. Suicidal thoughts. <Luis Gilbert MD - Last Filed: 01/09/24 10:54> Vital Signs Vital signs: Initial Vital Signs Temperature 98.4 F 01/08/24 23:54 Temperature Source Temporal Artery Scan 01/08/24 23:54 Pulse Rate 99 01/08/24 23:54 Respiratory Rate 16 01/08/24 23:54 Blood Pressure 144/100 H 01/08/24 23:54 Blood Pressure Mean 114 H 01/08/24 23:54 Blood Pressure Position Sitting 01/08/24 23:54 Pulse Oximetry 96 01/08/24 23:54 Oxygen Delivery Method Room Air 01/08/24 23:54 Vital Signs Temperature 98.4 F 01/08/24 23:54 Pulse Rate 99 01/08/24 23:54 Respiratory Rate 16 01/08/24 23:54 Blood Pressure 144/100 H 01/08/24 23:54 Pulse Oximetry 96 01/08/24 23:54 Oxygen Delivery Method Room Air 01/08/24 23:54 Temperature 98.4 F 01/08/24 23:54 Pulse Rate 81 01/09/24 01:53 Respiratory Rate 16 01/09/24 01:53 Blood Pressure 144/100 H 01/08/24 23:54 Pulse Oximetry 97 01/09/24 01:53 Oxygen Delivery Method Room Air 01/09/24 01:53 <Andrei Morgan MD - Last Filed: 01/12/24 18:21> Initial Vital Signs Temperature 98.4 F 01/08/24 23:54 Temperature Source Temporal Artery Scan 01/08/24 23:54 Pulse Rate 99 01/08/24 23:54 Respiratory Rate 16 01/08/24 23:54 Blood Pressure 144/100 H 01/08/24 23:54 Blood Pressure Mean 114 H 01/08/24 23:54 Blood Pressure Position Sitting 01/08/24 23:54 Pulse Oximetry 96 01/08/24 23:54 Oxygen Delivery Method Room Air 01/08/24 23:54 Vital Signs Temperature 98.4 F 01/08/24 23:54 Pulse Rate 99 01/08/24 23:54 Respiratory Rate 16 01/08/24 23:54 Blood Pressure 144/100 H 01/08/24 23:54 Pulse Oximetry 96 01/08/24 23:54 Oxygen Delivery Method Room Air 01/08/24 23:54 Temperature 98.4 F 01/08/24 23:54 Pulse Rate 81 01/09/24 01:53 Respiratory Rate 16 01/09/24 01:53 Blood Pressure 144/100 H 01/08/24 23:54 Pulse Oximetry 97 01/09/24 01:53 Oxygen Delivery Method Room Air 01/09/24 01:53 <Luis Gilbert MD - Last Filed: 01/09/24 10:54> Medications Administered Medications: Discontinued Medications Generic Name Dose Route Start Last Admin Trade Name Freq PRN Reason Stop Dose Admin Oxybutynin Chloride 10 mg 01/09/24 09:00 01/09/24 09:10 Oxybutynin Chloride 5 Mg Tab.Er.24 PO 10 mg DAILY MAURICIO Administration Sertraline HCl 100 mg 01/09/24 09:00 01/09/24 09:10 Sertraline 100 Mg Tablet PO 100 mg DAILY MAURICIO Administration <Andrei Morgan MD - Last Filed: 01/12/24 18:21> Discontinued Medications Generic Name Dose Route Start Last Admin Trade Name Freq PRN Reason Stop Dose Admin Oxybutynin Chloride 10 mg 01/09/24 09:00 01/09/24 09:10 Oxybutynin Chloride 5 Mg Tab.Er.24 PO 10 mg DAILY MAURICIO Administration Sertraline HCl 100 mg 01/09/24 09:00 01/09/24 09:10 Sertraline 100 Mg Tablet PO 100 mg DAILY MAURICIO Administration <Luis Gilbert MD - Last Filed: 01/09/24 10:54> MDM - Psych Lab Data Labs: Lab Results 01/08/24 01/09/24 Range/Units 23:54 00:55 WBC 8.01 (4.50-11.00) K/uL RBC 5.22 (4.30-5.90) m/uL Hgb 15.7 (13.5-17.5) gm/dL Hct 45.7 (37.0-53.0) % MCV 88 (80-100) fL MCH 30 (26-34) pg MCHC 34 (32-36) gm/dL RDW Coeff of Lilian 12.4 (11.5-15.5) % Plt Count 267 (140-440) K/uL Neut % (Auto) 60.6 (42.0-72.0) % Lymph % (Auto) 29.5 (20-44) % Union % (Auto) 7.1 (0.0-11.0) % Eos % (Auto) 1.6 (0.0-7.0) % Baso % (Auto) 0.6 (0.0-3.0) % Neut # (Auto) 4.85 (1.7-7.0) K/uL Lymph # (Auto) 2.36 (0.90-2.90) K/uL Union # (Auto) 0.60 (0.00-0.90) K/UL Eos # (Auto) 0.13 (0.00-0.50) K/uL Baso # (Auto) 0.05 (0.00-0.30) K/uL Abs Immat Gran (auto) 0.05 (0.00-0.30) K/uL Imm/Tot Granulo (auto) 0.6 % Sodium 140 (135-149) mmol/L Potassium 3.8 (3.6-5.1) mmol/L Chloride 105 (96-114) mmol/L Carbon Dioxide 23 (20-32) mmol/L Anion Gap 12 (7-15) mEq/L BUN 15 (5-24) mg/dL Creatinine 1.0 (0.6-1.2) mg/dL Estimated Creat Clear 114.95 Estimated GFR 111 ml/min Glucose 153 H (60-115) mg/dL Calcium 9.5 (8.7-10.8) mg/dL TSH 2.340 (0.270-4.200) uIU/mL Salicylates < 1.0 L (1.0-10) mg/dL Urine Opiates Screen Negative (Negative) Ur Oxycodone Screen Negative (Negative) Urine Methadone Screen Negative (Negative) Acetaminophen < 10.0 L (10.0-30.0) ug/mL Ur Barbiturates Screen Negative (Negative) U Tricyclic Antidepress Negative (Negative) Ur Phencyclidine Scrn Negative (Negative) Ur Amphetamines Screen Negative (Negative) U Methamphetamines Scrn Negative (Negative) U Benzodiazepines Scrn Negative (Negative) Urine Cocaine Screen Negative (Negative) U Marijuana (THC) Screen Negative (Negative) Ur Drug Screen Comment See Note SARS-CoV-2 (PCR) Negative SARS-CoV-2 (Negative) <Andrei Morgan MD - Last Filed: 01/12/24 18:21> Lab Results 01/08/24 01/09/24 Range/Units 23:54 00:55 WBC 8.01 (4.50-11.00) K/uL RBC 5.22 (4.30-5.90) m/uL Hgb 15.7 (13.5-17.5) gm/dL Hct 45.7 (37.0-53.0) % MCV 88 (80-100) fL MCH 30 (26-34) pg MCHC 34 (32-36) gm/dL RDW Coeff of Lilian 12.4 (11.5-15.5) % Plt Count 267 (140-440) K/uL Neut % (Auto) 60.6 (42.0-72.0) % Lymph % (Auto) 29.5 (20-44) % Union % (Auto) 7.1 (0.0-11.0) % Eos % (Auto) 1.6 (0.0-7.0) % Baso % (Auto) 0.6 (0.0-3.0) % Neut # (Auto) 4.85 (1.7-7.0) K/uL Lymph # (Auto) 2.36 (0.90-2.90) K/uL Union # (Auto) 0.60 (0.00-0.90) K/UL Eos # (Auto) 0.13 (0.00-0.50) K/uL Baso # (Auto) 0.05 (0.00-0.30) K/uL Abs Immat Gran (auto) 0.05 (0.00-0.30) K/uL Imm/Tot Granulo (auto) 0.6 % Sodium 140 (135-149) mmol/L Potassium 3.8 (3.6-5.1) mmol/L Chloride 105 (96-114) mmol/L Carbon Dioxide 23 (20-32) mmol/L Anion Gap 12 (7-15) mEq/L BUN 15 (5-24) mg/dL Creatinine 1.0 (0.6-1.2) mg/dL Estimated Creat Clear 114.95 Estimated GFR 111 ml/min Glucose 153 H (60-115) mg/dL Calcium 9.5 (8.7-10.8) mg/dL TSH 2.340 (0.270-4.200) uIU/mL Salicylates < 1.0 L (1.0-10) mg/dL Urine Opiates Screen Negative (Negative) Ur Oxycodone Screen Negative (Negative) Urine Methadone Screen Negative (Negative) Acetaminophen < 10.0 L (10.0-30.0) ug/mL Ur Barbiturates Screen Negative (Negative) U Tricyclic Antidepress Negative (Negative) Ur Phencyclidine Scrn Negative (Negative) Ur Amphetamines Screen Negative (Negative) U Methamphetamines Scrn Negative (Negative) U Benzodiazepines Scrn Negative (Negative) Urine Cocaine Screen Negative (Negative) U Marijuana (THC) Screen Negative (Negative) Ur Drug Screen Comment See Note SARS-CoV-2 (PCR) Negative SARS-CoV-2 (Negative) <Luis Gilbert MD - Last Filed: 01/09/24 10:54> Discharge Plan Discharge Clinical Impression: Suicidal thoughts <Andrei Morgan MD - Last Filed: 01/12/24 18:21> Prescriptions: No Action oxybutynin chloride 10 mg tablet extended release 24hr 10 mg PO DAILY sertraline 100 mg tablet 100 mg PO QAM Gemtesa 75 mg tablet 75 mg PO DAILY <Andrei Morgan MD - Last Filed: 01/12/24 18:21> Follow Up/Referrals: David Costa MD [Primary Care Provider] - <Andrei Morgan MD - Last Filed: 01/12/24 18:21>
[2024-01-09 01:03] LABS: Basophils Absolute Auto 0.05 K/uL (0.00-0.30); Basophils Percent Auto 0.6 % (0.0-3.0); Eosinophils Absolute Auto 0.13 K/uL (0.00-0.50); Eosinophils Percent Auto 1.6 % (0.0-7.0); Hematocrit 45.7 % (37.0-53.0); Hemoglobin* 15.7 gm/dL (13.5-17.5); Immature Granulocytes Abs Auto 0.05 K/uL (0.00-0.30); Immature Granulocytes Pct Auto 0.6 %; Lymphocytes Absolute Auto 2.36 K/uL (0.90-2.90); Lymphocytes Percent Auto 29.5 % (20-44); Mean Corpuscular HGB Conc 34 gm/dL (32-36); Mean Corpuscular Hemoglobin 30 pg (26-34); Mean Corpuscular Volume 88 fL (80-100); Monocytes Percent Auto 7.1 % (0.0-11.0); Neutrophils Absolute Auto 4.85 K/uL (1.7-7.0); Neutrophils Percent Auto 60.6 % (42.0-72.0); Platelet Count* 267 K/uL (140-440); RDW Coefficient of Variation % 12.4 % (11.5-15.5); Red Blood Count 5.22 m/uL (4.30-5.90); White Blood Count* 8.01 K/uL (4.50-11.00)
[2024-01-09 01:04] LABS: Slide Review Reflex No
[2024-01-09 01:24] LABS: Chloride* 105 mmol/L (96-114); Potassium* 3.8 mmol/L (3.6-5.1); Sodium* 140 mmol/L (135-149)
[2024-01-09 01:26] LABS: Est. Creatinine Clearance* 114.95; Estimated Glomerular Filt Rate 111 ml/min
[2024-01-09 01:27] LABS: Anion Gap 12 mEq/L (7-15); Blood Urea Nitrogen* 15 mg/dL (5-24); Calcium* 9.5 mg/dL (8.7-10.8); Carbon Dioxide* 23 mmol/L (20-32); Glucose* 153 mg/dL (60-115)
[2024-01-09 01:31] LABS: Acetaminophen* < 10.0 ug/mL (10.0-30.0); Salicylate* < 1.0 mg/dL (1.0-10)
[2024-01-09 01:53] VITALS: PULSE 81; RESP 16; O2SAT 97
[2024-01-09] MEDS: oxyBUTYnin chloride 5 MG TAB.ER.24 10 MG PO (09:10)
[2024-01-09] MEDS: SERTRALINE 100 MG TABLET PO (09:10)
--- NOTE | 2024-01-09 11:57 | PC.SOCIAL ---
Addendum entered by JAYLIN Diaz 01/09/24 15:31: Social work note: [facility] in [place] is still assessing pt. If declined by [facility], the following in-pt mental health facilities currently show bed availability on the [facility] website. Mother is hoping pt does not need to go to [place] or [facility]. These are listed in closest facility to furthest and can be called in this order if [facility] declines admission: 1. [facility] [phone] 2. [facility] [phone] 3. [facility] ([facility]) [phone] 4. [facility] [phone] 5. [facility] [phone] 6. [facility] [phone] 7[address] [phone] [facility] [phone] 9. [facility] [phone] 10.[facility] [phone] Original Note: Social work: Mental Health Assessment completed with pt. Please see chart for details. With pt's permission, met with mother, Amparo. Pt admits to suicidal ideation and attempt last night while at work. Pt held a flipknife he owns to his neck. He did not injure himself and walked from his home to the hospital for help. Pt is requesting in-pt mental health placement due to suicidal thoughts and not feeling safe at home. Pt has a diagnosis of depression and anxiety, currently taking medication. Was in counselling until a few months ago when he stopped as he was feeling better. Mom has been worried about pt being more withdrawn in past few weeks and not sharing with her what is bothering him. Noemi is in support of in-pt mental health treatment. She shared that both pt's father and older brother have been in in-pt mental health placement before. Mom would prefer pt not be placed at [facility] or [facility], in [place] if possible. Per order for in-pt mental health placement, called [facility] in [place] [phone] and faxed referral for evaluation for admission to them at [phone]. sand worker to follow up as needed.
== END 2024-01-09 16:38 ==
PROVIDERS: Family Medicine; Emergency Provider Emergency Medicine; PCP Family Medicine
DX: R45.851 Suicidal ideations (principal)
CPT/HCPCS: 36415; 80048; 80143; 80179; 80306; 84443; 85025; 87635; 99283; 99285; A9270

== ENCOUNTER 2024-01-09 16:31 | Outpatient (CLI) | payer BC, SELFPAY ==
--- OUTSIDE RECORDS SUMMARY | 2024-01-12 08:10 | XMS_ITS | Continuity of Care Document ---
Author Organization [facility] Address [address] [place] [address] Care Team Providers Care Behavioral Health Worker Name Role Phone ABEBA [facility] Primary Care Provider Assessment No assessment recorded. Plan of Treatment Reminders Order Date Submit Date Provider Last Modified By Organization Details Last Modified Time Details Appointments ESTABLISH ED 10 2023 03:40P M Not available Not available Not available Lab urinalysi s, dipstick [address] [facility], [facility] [facility] [address], [address] [place] [address], [place], [address], 12/24/2023 16:38:45 Referral None recorded. Procedures bladder scan (PROC) [address] [facility], [facility] [facility], Suite [facility], [place], [address], 12/24/2023 16:38:43 Surgeries None recorded. Imaging None recorded. Medication Orders oxybutyni n chloride ER 10 mg tablet,ex tended release 24 hr 2023 024 [facility], [address] [place] [address], [place], [address], 12/24/2023 17:18:44 Patient TargetsNo targets recorded. Patient Instructions Encounter Date Encounter Id Patient Instructions Last Modified By Organization Details Last Modified Time 12/24/2023 [id number] will try adding oxybutynin ER 10mg daily continue gemtesa and plan recheck in 6 weeks. [email or web address] Not available 12/24/2023 16:57:40 Reason for Referral None Reported. Results Created Date Observation Date Name Description Value Unit Range Abnormal Flag LastModifiedBy Organization Detail LastModifiedTime 12/24/19 24 12/24/2023 bladd er scan (PROC ) Volume (in mL) 89 Not Available [address], [place], [address], 12/13/2023 10:44:18 12/24/19 24 12/24/2023 urina lysis , dipst ick Color-Status Yellow Not Available [address], [place], [address], 12/13/2023 10:44:17 12/24/19 24 12/24/2023 urina lysis , dipst ick Clarity-Stat us Clear Not Available [address], [place], [address], 12/13/2023 10:44:17 12/24/19 24 12/24/2023 urina lysis , dipst ick Sp [place]-Stat us 1.020 Not Available [address], [place], [address], 12/13/2023 10:44:17 12/24/19 24 12/24/2023 urina lysis , dipst ick pH-Status 6.5 Not Available [address], [place], [address], 12/13/2023 10:44:17 12/24/19 24 12/24/2023 urina lysis , dipst ick Nitrates-Sta tus negati ve Not Available [address], [place], [address], 12/13/2023 10:44:17 12/24/19 24 12/24/2023 urina lysis , dipst ick Blood-Status Negati ve Not Available [address], [place], [address], 12/13/2023 10:44:17 12/24/19 24 12/24/2023 urina lysis , dipst ick Leuko-Status Negati ve Not Available [address], [place], [address], 12/13/2023 10:44:17 12/24/19 24 12/24/2023 urina lysis , dipst ick Specimen Type Voided Not Available [address], [place], [address], 12/13/2023 10:44:17 Result Notes None recorded. Problems Name Status Onset Date Resolution Date Notes Provider Name and Address Organization Details Recorded Time Varicocele visible through skin Active 02/23/20 23 Moody Dawn MD [address] [place] [address], [phone], [facility] 02/22/2023 16:54:19 Nocturnal enuresis Active 11/14/19 24 Danny Pickard MD [address] [place] [address], [address], [facility] 11/14/2023 10:21:45 Problem Notes None recorded. Procedures Surgical History Date Name Laterality Status Provider Name and Address Organization Details Recorded Time Bladder Scan completed Danny Pickard MD [address] [place] [address], [address], [facility] 12/24/2023 16:37:09 Imaging Results None recorded. [...] 12/24/2023 175.26 cm 94 % 29.5 kg/m2 02159.47 g Danny Pickard MD [address] [place] [address],[address], [place], [address], [facility] 12/24/2023 16:35:21 Social History Question Answer Notes LastModified by Organizat ion Details LastModified Time Tobacco Smoking Status [facility]/2023 15:33:50 What Is Your Level Of Alcohol Consumption? None Information not available 02/22/2023 What Is Your Level Of Caffeine Consumption? Heavy Information not available 11/14/2023 What Was The Date Of Your Most Recent Tobacco Screening? 12/24/2023 [email or web address] Information not available 12/24/2023 Do You Use [...] Notes:None per patient Medical History Condition Response Other N High Blood Pressure N Kidney Stones N Depression Y Sexually Transmitted Infection N Cancer N Bleeding Disorder N Lung Disease N GERD/Acid Reflux N High Cholesterol N Diabetes N Heart Disease N Immunizations Vaccine Type Date Status Provider Name and Address Organization Details Recorded Time HPV9 12/02/[address] [facility] 06/14/2023 15:18:28 HPV9 12/14/[address] [facility] 06/14/2023 15:18:28 MMR 09/17/[address] [facility] 06/14/2023 15:18:28 [facility] 09/20/[address] [facility] 06/14/2023 15:18:28 COVID-19, mRNA, LNP-S, PF, 30 mcg/0.3 mL dose 09/29/[address] [facility] 06/14/2023 15:18:28 COVID-19, mRNA, LNP-S, PF, 30 mcg/0.3 mL dose 10/20/[address] [facility] 06/14/2023 15:18:28 COVID-19, mRNA, LNP-S, PF, 30 mcg/0.3 mL dose, kayli-sucrose 07/24/2021 completed Maddison viveros, [facility] 06/14/2023 15:18:28 pneumococcal conjugate PCV 7 2004 completed Maddison Faustin null, [facility] 06/14/2023 15:18:28 pneumococcal conjugate PCV 7 12/24/2005 completed Maddison Faustin null, [facility] 06/14/2023 15:18:28 pneumococcal conjugate PCV 7 01/12/2005 completed Maddison Faustin null, [facility] 06/14/2023 15:18:28 pneumococcal conjugate PCV 7 03/30/2005 completed Maddison Faustin null, [facility] 06/14/2023 15:18:28 DTaP-IPV 09/20/2009 completed Maddison viveros, [facility] 06/14/2023 15:18:28 Tdap 12/02/2015 completed Maddison viveros, [facility] 06/14/2023 15:18:28 varicella 09/17/2005 completed Maddison viveros, [facility] 06/14/2023 15:18:28 varicella 09/20/2009 completed Maddison viveros, [facility] 06/14/2023 15:18:28 Influenza, split virus, trivalent, preservative 04/01/2006 completed Maddison viveros, [facility] 06/14/2023 15:18:28 Influenza, split virus, trivalent, preservative 04/29/2006 completed Maddison Faustin null, [facility] 06/14/2023 15:18:28 Hep A, ped/adol, 2 dose 10/09/2013 [facility] 15:18:28 Hep A, ped/adol, 2 dose 11/09/2011 completed Maddison viveros, [facility] 06/14/2023 15:18:28 [facility]OMP) 2004 [facility] 15:18:28 Hib (PRP-OMP) 12/24/2005 completed Maddison Herreradimpleauer null, [facility] 06/14/2023 15:18:28 Hib (PRP-OMP) 01/12/2005 completed Maddison Herreradimpleauer null, [facility] 06/14/2023 15:18:28 Meningococcal MCV4O 12/02/2015 completed Maddison Herreradimpleauer null, [facility] 06/14/2023 15:18:28 Meningococcal MCV4O 01/19/2022 completed Maddison Herrerarbauer null, [facility] 06/14/2023 15:18:28 DTaP 12/24/2005 completed Maddison Herreradimpleauer null, [facility] 06/14/2023 15:18:28 DTaP-Hep B-IPV 2004 completed Maddison Herreradimpleauer null, [facility] 06/14/2023 15:18:28 DTaP-Hep B-IPV 01/12/2005 completed Maddison Herreradimpleauer null, [facility] 06/14/2023 15:18:28 DTaP-Hep B-IPV 03/30/2005 completed Maddison Herreradimpleauer null, [facility] 06/14/2023 15:18:28 Influenza, split virus, quadrivalent, PF 01/19/2022 completed Maddison Herreradimpleauer null, [facility] 06/14/2023 15:18:28 Influenza, split virus, quadrivalent, PF 02/01/2023 completed Maddisonadam Herreradimpleauer null, [facility] 06/14/2023 15:18:28 Past Encounters Encounter ID Performer Location Encounter Start Date Encounter Closed Date Diagnosis/Indication Diagnosis SNOMED-CT Code [id number] Danny Pickard MD [facility] [address] [place] [address] 12/24/2023 15:54:41 12/30/2023 15:39:13 Varicocele visible through skin 946539226 Nocturnal enuresis 33796 08 Health Concerns Section Related Observation LastModified by Organization Detai ls LastModified Time None Recorded Concern Status LastModified by Organization Details LastModified Time None Recorded Payers Encounter Date Sequence Insurance Name Policy Number Policy Jewell Covered Member ID Jewell Member ID Guarantor Name 12/24/2023 1 [place] [id number] Amparo Betancourt [id number] Dave Betancourt Notes Date Note Type Note Provider Name and Address Organization Details Recorded Time 12/24/2023 text/html HPI Notes: follow up enuresis, daytime doing fine and wetting most nights. taking gemtesa samples UA clear and PVR 89ml today. Danny Pickard MD [address] [place] [address],[facility] [address], [place], [address], [facility] 12/24/2023 16:57:55
--- OUTSIDE RECORDS SUMMARY | 2024-01-12 08:11 | XMS_ITS | Continuity of Care Document ---
Author Organization [facility], [facility] Address [address] [place] [address] Care Team Providers Care Hasher Operator Name Role Phone ABEBA GUERRERO ([place]) Primary Care Provider Assessment No assessment recorded. Plan of Treatment Reminders Order Date Submit Date Provider Last Modified By Organization Details Last Modified Time Details Appointments ESTABLISH ED 10 2023 03:40P M Not available Not available Not available Lab urinalysi s, dipstick 2023 024 [email or web address] [facility], [address], [address], [place], [address], 11/14/2023 10:24:22 Referral None recorded. Procedures bladder scan (PROC) 2023 024 SANDEEP [facility], [address], [address], [place], [address], 11/18/2023 09:40:55 Surgeries None recorded. Imaging None recorded. Medication Orders None recorded. Patient TargetsNo targets recorded. Patient Instructions Encounter Date Encounter Id Patient Instructions Last Modified By Organization Details Last Modified Time 11/14/2023 [id number] will try gemtesa and recheck in 6 weeks. [email or web address] Not available 11/14/2023 11:13:37 Reason for Referral None Reported. Results Created Date Observation Date Name Description Value Unit Range Abnormal Flag LastModifiedBy Organization Detail LastModifiedTime 11/14/19 24 11/14/2023 urina lysis , dipst ick Sp [employer]-Stat us >=1.03 0 Not Available [address], [place], [address], 11/14/2023 10:15:21 11/14/19 24 11/14/2023 urina lysis , dipst ick pH-Status 5.5 Not Available [address], [place], [address], 11/14/2023 10:15:21 11/14/19 24 11/14/2023 urina lysis , dipst ick Urobilinogen -Status 0.2 Not Available [address], [place], [address], 11/14/2023 10:15:21 11/18/19 24 11/18/2023 bladd er scan (PROC ) Volume (in mL) 166 mL Not Available [address], [place], [address], 11/14/2023 10:21:56 Result Notes None recorded. Problems Name Status Onset Date Resolution Date Notes Provider Name and Address Organization Details Recorded Time Varicocele visible through skin Active 02/23/20 23 Moody Dawn MD [address] [place] [address], [address], [facility] 02/22/2023 16:54:19 Nocturnal enuresis Active 11/14/19 24 Danny Pickard MD [address] [place] [address], [address], [facility] 11/14/2023 10:21:45 Problem Notes None recorded. Procedures Surgical History Date Name Laterality Status Provider Name and Address Organization Details Recorded Time Bladder Scan completed Danny Pickard MD [address] [place] [address], [address], [facility] 12/24/2023 16:37:09 Imaging Results None recorded. [...] 11/14/2023 175.26 cm 94 % 29.5 kg/m2 59121.47 g Danny Pickard MD [address] [place] [address],[address], [place], [address], [facility] 11/14/2023 10:00:28 Social History Question Answer Notes LastModified by Organizat ion Details LastModified Time Tobacco Smoking Status Never Smoker Valerie viveros, [facility] 02/22/2023 15:33:50 What Is Your Level Of Alcohol Consumption? None Information not available 02/22/2023 What Is Your Level Of Caffeine Consumption? Heavy [email or web address] Information not available 11/14/2023 What Was The Date Of Your Most Recent Tobacco Screening? 12/24/2023 [email or web address] Information not available 12/24/2023 Do You Use [...] Recorded Time HPV9 12/02/2015 completed Maddison viveros [facility] 06/14/2023 15:18:28 HPV9 12/14/2016 completed Maddison viveros [facility] 06/14/2023 15:18:28 [facility]MR 09/17/2005 [facility] 15:18:28 [facility]20[facility] 15:18:28 COVID-19, mRNA, LNP-S, PF, 30 mcg/0.3 mL dose 09/29/2020 completed Maddison viveros [facility] 06/14/2023 15:18:28 COVID-19, mRNA, LNP-S, PF, 30 mcg/0.3 mL dose 10/20/2020 completed Maddison Mosesauer null, [facility] 06/14/2023 15:18:28 COVID-19, mRNA, LNP-S, PF, 30 mcg/0.3 mL dose, kayli-sucrose 07/24/2021 completed Maddison Herrerarbauer null, [facility] 06/14/2023 15:18:28 pneumococcal conjugate PCV 7 2004 completed Maddison Mosesauer null, [facility] 06/14/2023 15:18:28 pneumococcal conjugate PCV 7 12/24/2005 completed Maddison Osterbauer null, [facility] 06/14/2023 15:18:28 pneumococcal conjugate PCV 7 01/12/2005 completed Maddison Mosesauer null, [facility] 06/14/2023 15:18:28 pneumococcal conjugate PCV 7 03/30/2005 completed Maddison Mosesauer null, [facility] 06/14/2023 15:18:28 DTaP-IPV 09/20/2009 completed Maddison Mosesauer null, [facility] 06/14/2023 15:18:28 Tdap 12/02/2015 completed Maddison Mosesauer null, [facility] 06/14/2023 15:18:28 varicella 09/17/2005 completed Maddison Mosesauer null, [facility] 06/14/2023 15:18:28 varicella 09/20/2009 completed Maddison Mosesauer null, [facility] 06/14/2023 15:18:28 Influenza, split virus, trivalent, preservative 04/01/2006 completed Maddison Osterbauer null, [facility] 06/14/2023 15:18:28 Influenza, split virus, trivalent, preservative 04/29/2006 completed Maddison Mosesauer null, [facility] 06/14/2023 15:18:28 Hep A, ped/adol, 2 dose 10/09/2013 completed Maddison Mosesauer null, [facility] 06/14/2023 15:18:28 Hep A, ped/adol, 2 dose 11/09/2011 [facility] 15:18:28 Hib (PRP-OMP) 2004 completed Maddison Osterbauer null, [facility] 06/14/2023 15:18:28 Hib (PRP-OMP) 12/24/2005 completed Maddison Osterbauer null, [facility] 06/14/2023 15:18:28 Hib (PRP-OMP) 01/12/2005 completed Maddison Osterbauer null, [facility] 06/14/2023 15:18:28 Meningococcal MCV4O 12/02/2015 completed Maddison Osterbauer null, [facility] 06/14/2023 15:18:28 Meningococcal MCV4O 01/19/2022 completed Maddison Osterbauer null, [facility] 06/14/2023 15:18:28 DTaP 12/24/2005 completed Maddison Mosesauer null, [facility] 06/14/2023 15:18:28 DTaP-Hep B-IPV 2004 completed Maddison Herrerarbauer null, [facility] 06/14/2023 15:18:28 DTaP-Hep B-IPV 01/12/2005 completed Maddison Osterbauer null, [facility] 06/14/2023 15:18:28 DTaP-Hep B-IPV 03/30/2005 completed Maddison Osterbauer null, [facility] 06/14/2023 15:18:28 Influenza, split virus, quadrivalent, PF 01/19/2022 completed Maddison Herrerarbauer null, [facility] 06/14/2023 15:18:28 Influenza, split virus, quadrivalent, PF 02/01/2023 completed Maddison Osterbauer null, [facility] 06/14/2023 15:18:28 Past Encounters Encounter ID Performer Location Encounter Start Date Encounter Closed Date Diagnosis/Indication Diagnosis SNOMED-CT Code [id number] [facility] [address] [place] [address] 11/14/2023 09:47:56 11/15/2023 09:03:26 Varicocele visible through skin 516246821 Nocturnal enuresis 31568 08 Health Concerns Section Related Observation LastModified by Organization Detai ls LastModified Time None Recorded Concern Status LastModified by Organization Details LastModified Time None Recorded Payers Encounter Date Sequence Insurance Name Policy Number Policy Jewell Covered Member ID Jewell Member ID Guarantor Name 11/14/2023 1 [place] [id number] Amparo De La Rosa Serafin [id number] Dave Betancourt Notes Date Note Type Note Provider Name and Address Organization Details Recorded Time 11/14/2023 text/html HPI Notes: seeing for a new problem today- started to have worsening enuresis about 5 months ago. happens almost every night. daytime control is OK but has urgency. UA clear and PVR 166ml today. no heme/dysuria. no trouble with bowel control Danny Pickard MD [address] [facility],[address], [place], [address], [facility] 11/14/2023 10:25:19
--- OUTSIDE RECORDS SUMMARY | 2024-01-12 08:11 | XMS_ITS | Clinical Summary ---
Author Organization [facility] Address [place], [place] [address] Care Team Providers Care Toy Assembler Wood Name Role Phone David Costa MD Primary Care Provider [phone] Allergies Active Allergy Reactions Criticality Noted Date [...] Type Department Care Team Description 10/23/2023 Refill [facility] [address] [place] [address] David Costa MD Refill Request (Sertraline) from Last 3 Months Immunizations Name Administration Dates Next Due COVID-19 Vaccine Spikevax (M oderna 50mcg/0.5mL) 12YO+ 8718-2305 Formula PF 05/01/2023 COVID-19 vaccine (Pfizer-Bio NTech 30mcg/0.3mL) 12YO+ RHEA-SUCROSE PF, MDV 07/24/2021 COVID-19 vaccine (Pfizer-Bio NTech 30mcg/0.3mL) PF, MDV 10/20/2020,09/29/2020 DTaP 12/24/2005 [id number] (Pediarix) 03/30/2005,01/12/2005,0 2004 DTaP-IPV (Kinrix) 09/20/2009 HIB [...] Comments Blood Pressure 130/77 05/01/2023 3:49 PM ELECTROLYSIST Pulse 80 05/01/2023 3:49 PM ELECTROLYSIST Temperature 36.8 ??C (98.3 ??F) 05/01/2023 3:49 PM CS T Respiratory Rate 20 09/19/2010 9:02 AM CDT Oxygen Saturation 95% 05/01/2023 3:49 PM ELECTROLYSIST Inhaled Oxygen Concentration - - Weight 93.4 kg (206 lb) 05/01/2023 3:49 PM ELECTROLYSIST Height 170.2 cm (5' 7.01) 02/01/2023 3:46 [...] 07/24/2021, 10/20/2020, Additional history exists Care Teams Toy Assembler Wood Relationship Specialty Start Date End Date David Costa MD [address] [place] [address] PCP - General 10/08/05
--- OUTSIDE RECORDS SUMMARY | 2024-01-12 08:11 | XMS_ITS | Patient Health Record ---
Author Organization [facility] Address [address] [address] [address] [place] [address] Care Team Providers Care Licensed Final Expense Agents Name Role Phone Igor MALAGON, David Primary Care Provider [phone] AFUA MEJIA, HARINDER, DAVID Unavailable Allergies Allergen [...] W/U Status Risk Notes Problem Tourette's disorder (3379529) Tourette's disorder (307.23) Active confirmed Problem Constipation (31210163) Constipation (K59.00) Active confirmed Problem Urgent desire to urinate (15446764) Urinary urgency (R39.15) Active confirmed Problem Nocturnal enuresis (1472541) Nocturnal Enuresis (N39.44) Active confirmed Problem Urinary incontinence (221987347) Urinary incontinence (R32) Active confirmed Problem Disorder of kidney and/or ureter (582010056) 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 confirmed Problem Voiding dysfunction (063701339) Voiding dysfunction (N39.8) Active confirmed Plan Of Treatment Future Test Test Name Order Date US Renal (SASHA) 02/01/2017 Insurance Providers Payer Name Payer Address Payer Phone Subscriber Number Group Number Insured Name Patient Relationship to Insured Coverage Start Date Coverage End Date [facility] [address] [address] [place] [phone] [id number] Dave Betancourt Self - patient is the insured Medical (General) History Medical History History ICD Code Born @ full term, 6 lb 6 oz Neurological: Tourette's Gastrointestinal: Constipation Gennitourinary: Nocturnal en uresis, Dysfunctional voiding, Urinary incontinence, Uriinary urgency, Pelviectasis Other: Mood & affect disturbance Surgical History Surgery Date(Month/Year) BMT's 07/23 BMT's 11/26 Undescended testicle completed in [facility] ie 2009 Hospitalization History Reason Date(Month/Year) Dehydration
== END 2024-01-09 16:32 | disposition home or self-care (01) ==
LOC: AMB 01-12 08:08
PROVIDERS: PCP Family Medicine; Visit Provider Family Medicine
DX: R45.851 Suicidal ideations (principal)
CPT/HCPCS: A0425; A0428

== ENCOUNTER 2024-02-05 18:13 | Emergency (ER) | payer BC, SELFPAY ==
[2024-02-05 18:18] VITALS: BP 146/95; PULSE 81; RESP 18; TEMP 36.8; O2SAT 95; BMI 29.5
--- NOTE | 2024-02-05 18:19 | ED_ITS ---
HPI - Wound/Laceration General Time Seen by Provider: 18:19 Date Seen: 02/05/24 Chief Complaint: Laceration/Wound Stated Complaint: laceration left hand Time Seen by Provider: 02/05/24 18:29 Source: patient and RN notes reviewed Mode of arrival: ambulatory Limitations: no limitations History of Present Illness HPI narrative: Dave is a very pleasant 18-year-old with last tetanus in 2016 who comes to the emergency room for evaluation of a laceration to his left hand. Patient states that he was using a large kitchen knife to split wood. He states he was holding the plastic handle and was hitting it with something heavy and unfortunately the plastic handle shattered causing a laceration to his left hand. He did have extensive bleeding and there is blood on his foot but he denies an injury there. His neighbor's happen to be paramedics and they bandaged him up. Patient is able to move his hand without difficulty. He denies numbness or tingling. He has not taken anything for pain at this point. He does have discomfort. Related Data Home Medications ?Medication ?Instructions ?Recorded ?Confirmed oxybutynin chloride 10 mg 10 mg PO DAILY 01/08/24 01/08/24 tablet,extended release 24 hr sertraline 100 mg tablet 100 mg PO QAM 01/08/24 01/08/24 vibegron 75 mg tablet (Gemtesa) 75 mg PO DAILY 01/08/24 01/08/24 Allergies Allergy/AdvReac Type Severity Reaction Status Date / Time nickel Allergy Mild Contact Verified 02/05/24 18:18 Dermatitis Review of Systems Status of ROS: Reports: 6 or more systems reviewed and unremarkable except as noted in History and below [facility] Social History Smoking Status: Never smoker Do you use any of these nicotine containing products: None How often do you have a drink containing alcohol: never AUDIT-C Alcohol total score: 0 Non-prescribed substance use: denies use service: No Exam Narrative: Exam Narrative: Patient is alert and oriented. When I enter the room he does appear to be anxious. His hand is bandaged at this point. We do remove the bandage in he has sustained a approximately 1.1 cm laceration to the distal area of the web between the thumb and 1st finger on the left hand. There is a thin piece of avulsed skin still attached at the lateral edge. Underneath we he has sustained compromise of the epidermis and dermis and minimally compromising subcutaneous tissue. There did not appear to be any foreign bodies at this spot. He has full sensation and motor of the digits. There does not appear to be any palpable foreign bodies. Const: Vital Signs, click to edit/add: Vital Signs - 24 hr 02/05/24 18:18 Temperature 98.2 F Pulse Rate [Pulse Oximeter] 81 Respiratory Rate 18 Blood Pressure [Le ft Upper Arm] 146/95 H Pulse Oximetry 95 Oxygen Delivery Me thod Room Air Documenting provider has reviewed patient's vital signs: yes Course Course ED Course: Patient was offered both gluing and stitching of this area. I did recommend stitching giving its location but patient is preferring to have this glued. I did explain that this would place him at risk for dehiscence if he is moving around a lot and he states he will be able to the not uses hand over the next few days. We did check and he is not need of a tetanus at this time. This area was irrigated. I did gently place the avulsed tissue down the center of the wound. Dermabond was applied in a generous fashion. Vital Signs Vital signs: Initial Vital Signs Temperature 98.2 F 02/05/24 18:18 Temperature Source Temporal Artery Scan 02/05/24 18:18 Pulse Rate 81 02/05/24 18:18 Pulse Rhythm Regular 02/05/24 18:18 Respiratory Rate 18 02/05/24 18:18 Blood Pressure 146/95 H 02/05/24 18:18 Blood Pressure Mean 112 H 02/05/24 18:18 Blood Pressure Position Supine 02/05/24 18:18 Pulse Oximetry 95 02/05/24 18:18 Oxygen Delivery Method Room Air 02/05/24 18:18 Vital Signs Temperature 98.2 F 02/05/24 18:18 Pulse Rate 81 02/05/24 18:18 Respiratory Rate 18 02/05/24 18:18 Blood Pressure 146/95 H 02/05/24 18:18 Pulse Oximetry 95 02/05/24 18:18 Oxygen Delivery Method Room Air 02/05/24 18:18 Temperature 98.2 F 02/05/24 18:18 Pulse Rate 81 02/05/24 18:18 Respiratory Rate 18 02/05/24 18:18 Blood Pressure 146/95 H 02/05/24 18:18 Pulse Oximetry 95 02/05/24 18:18 Oxygen Delivery Method Room Air 02/05/24 18:18 MDM - Wound/Laceration MDM Narrative Medical decision making narrative: 1. Laceration repair-monitor for signs and symptoms of infection. Recommend seeking medical attention for increasing swelling fever or chills. Otherwise leave this in place for at least 7 days. Limit movement of the hand over the next 72 hours to allow adhesion of the tissues underneath to strengthen. 2. Disposition-home at this time. Ibuprofen or Tylenol as needed for pain. Return or seek medical attention as needed. Medical Records Attestation: I reviewed the patient's medical records. Discharge Plan Discharge Clinical Impression: Laceration Patient Disposition: Home, Self-Care Condition: Improved Additional Instructions: Try to limit all movement of the hand for the next 48-72 hours as the tissues underneath the glue start to heal. Thereafter you may move hand. The glue will probably fall off at about day 7. Monitor for any infection and seek medical attention for increasing redness swelling fever or chills. Prescriptions: No Action oxybutynin chloride 10 mg tablet extended release 24hr 10 mg PO DAILY sertraline 100 mg tablet 100 mg PO QAM Gemtesa 75 mg tablet 75 mg PO DAILY Follow Up/Referrals: David Costa MD [Primary Care Provider] - Stand Alone Forms: [employer] Info Instructions
--- OUTSIDE RECORDS SUMMARY | 2024-02-05 18:41 | XMS_ITS | Continuity of Care Document ---
Author Organization [facility] , [facility] Address [address] [place] [address] Care Team Providers Care Manager Pmo Name Role Phone [facility] Primary Care Provider Assessment No assessment recorded. Plan of Treatment Reminders Order Date Submit Date Provider Last Modified By Organization Details Last Modified Time Details Appointments ESTABLISH ED 10 2023 03:40P M Not available Not available Not available Lab urinalysi s, dipstick 2023 024 [facility], [facility] [facility] [address] [facility] [address] [facility], [address] [place] [address], [place], [address], 12/24/2023 16:38:45 Referral None recorded. Procedures bladder scan (PROC) 2023 024 [facility], [facility] [address] [facility], [address] [facility], [place], [address], 12/24/2023 16:38:43 Surgeries None recorded. Imaging None recorded. Medication Orders oxybutyni n chloride ER 10 mg tablet,ex tended release 24 hr 2023 024 [facility], [address] [place] [address], [place], [address], 12/24/2023 17:18:44 Patient TargetsNo targets recorded. Patient Instructions Encounter Date Encounter Id Patient Instructions Last Modified By Organization Details Last Modified Time 12/24/2023 [id number] will try adding oxybutynin ER 10mg daily continue gemtesa and plan recheck in 6 weeks. [email or web address] Not available 12/24/2023 16:57:40 Reason for Referral None Reported. Results Created Date Observation Date Name Description Value Unit Range Abnormal Flag Note LastModifiedBy Organization Detail LastModifiedTime 12/24/19 24 12/24/2023 bladd er scan (PROC ) Volume (in mL) 89 Not Available [address], [place], [address], 12/13/2023 10:44:18 12/24/19 24 12/24/2023 urina lysis , dipst ick Color-Status Yellow Not Available [address], [place], [address], 12/13/2023 10:44:17 12/24/19 24 12/24/2023 urina lysis , dipst ick Clarity-Stat us Clear Not Available [address], [place], [address], 12/13/2023 10:44:17 12/24/19 24 12/24/2023 urina lysis , dipst ick Sp [place]-Stat us 1.020 Not Available [address], [place], [address], 12/13/2023 10:44:17 12/24/19 24 12/24/2023 urina lysis , dipst ick pH-Status 6.5 Not Available [address], [place], [address], 12/13/2023 10:44:17 12/24/19 24 12/24/2023 urina lysis , dipst ick Nitrates-Sta tus negati ve Not Available [address], [place], [address], 12/13/2023 10:44:17 12/24/19 24 12/24/2023 urina lysis , dipst ick Blood-Status Negati ve Not Available [address], [place], [address], 12/13/2023 10:44:17 12/24/19 24 12/24/2023 urina lysis , dipst ick Leuko-Status Negati ve Not Available [address], [place], [address], 12/13/2023 10:44:17 12/24/19 24 12/24/2023 urina lysis , dipst ick Specimen Type Voided Not Available [address], [place], [address], 12/13/2023 10:44:17 Result Notes None recorded. Problems Name Problem SNOMED Code Status Onset Date Resolution Date Notes Provider Name and Address Organization Details Recorded Time Varicocele visible through skin 920127460 Active 023 Moody brian MD [address] [place] [address],[address] [place] [address], [phone], [facility] 3 16:54:19 Nocturnal enuresis 2184031 Active 024 Danny Pickard MD [address] [place] [address],[address] [place] [address], [phone], [facility] 4 10:21:45 Problem Notes None recorded. Procedures Surgical History Date Name Laterality Status Provider Name and Address Organization Details Recorded Time Bladder Scan completed Danny Pickard MD [address] [place] [address],[address], [place], [address], [facility] 02/04/2024 16:41:54 Bladder Scan completed Danny Pickard MD [address], [place], [address], [facility] 12/24/2023 16:37:09 Imaging Results None recorded. [...] Not Available sertraline 100 mg tablet TAKE ONE TABLET BY MOUTH DAILY active Not Available Not Available No t Available citalopram 20 mg tablet TAKE 1 TABLET (20 MG) BY MOUTH EVERY MORNING. 11/13 completed Not Available Not Available Not Available Vistaril 25 mg capsule Take 1 capsule 4 times a day by oral route. active Not Available Not Available No t Available methylpredn isolone 4 mg tablets in a dose pack TAKE DIRECTED. START A.M. OF 07/06/2202/22 completed Not Available Not Available Not Available sertraline 50 mg tablet TAKE 1 TABLET (50 MG) BY MOUTH EVERY MORNING. 11/13 completed Not Available Not Available Not Available bupropion HCl XL 150 mg 24 hr tablet, extended release TAKE ONE TABLET BY MOUTH DAILY active Not Available Not Available No t Available melatonin active Not Available Not [place] ilable Not Available Vitamin D3 50 mcg (2,000 [...] 12/24/2023 175.26 cm 94 % 29.5 kg/m2 62418.47 g Danny Pickard MD [address] [place] [address],[address], [place], [address] 12/24/2023 16:35:21 Social History Question Answer Notes LastModified by Organizat ion Details LastModified Time Tobacco Smoking Status Never Smoker Valerie viveros [facility] 02/22/2023 15:33:50 What Is Your Level Of Alcohol Consumption? None Information not available 02/22/2023 What Is Your Level Of Caffeine Consumption? Heavy [email or web address] Information not available 11/14/2023 What Was The Date Of Your Most Recent Tobacco Screening? 02/04/2024 [email or web address] Information not available 02/04/2024 Do You Use Any Illicit Or Recreational [...] Age of this Age Resolved Age Notes LastModified by Organization Details LastModified Time Maternal Grandmother Malignant melanoma [email or web address] Not available 11/13 10:01:51 Notes:None per patient Medical History Condition Response Other N High Blood Pressure N Kidney Stones N Lung Disease N Depression Y GERD/Acid Reflux N Sexually Transmitted Infection N Cancer N High Cholesterol N Diabetes N Bleeding Disorder N Heart Disease N Immunizations Vaccine Type Date Status Provider Name and Address Organization Details Recorded Time HPV9 12/02/2015 completed Maddison viveros [facility] 06/14/2023 15:18:28 HPV9 12/14/2016 completed Maddison viveros [facility] 06/14/2023 15:18:28 MMR 09/17/2005 completed Maddison Faustin null, [facility] 06/14/2023 15:18:28 MMR 09/20/2009 completed Maddison Faustin null, [facility] 06/14/2023 15:18:28 COVID-19, mRNA, LNP-S, PF, 30 mcg/0.3 mL dose 09/29/2020 [facility] 15:18:28 COVID-19, mRNA, LNP-S, PF, 30 mcg/0.3 mL dose 10/20/2020 [facility] 15:18:28 COVID-19, mRNA, LNP-S, PF, 30 mcg/0.3 mL dose, kayli-sucrose 07/24/2021 [facility] 15:18:28 pneumococcal conjugate PCV 7 2004 [facility] 15:18:28 pneumococcal conjugate PCV 7 12/24/2005 [facility] 15:18:28 pneumococcal conjugate PCV 7 01/12/2005 [facility] 15:18:28 pneumococcal conjugate PCV 7 03/30/2005 [facility] 15:18:28 DTaP-IPV 09/20/2009 completed Maddison viveros, [facility] 06/14/2023 15:18:28 Tdap 12/02/2015 [facility] 15:18:28 varicella 09/17/2005 [facility] 15:18:28 varicella 09/20/2009 [facility] 15:18:28 Influenza, split virus, trivalent, preservative 04/01/2006 [facility] 15:18:28 Influenza, split virus, trivalent, preservative 04/29/2006 completed Maddison Mosesauer null, [facility] 06/14/2023 15:18:28 Hep A, ped/adol, 2 dose 10/09/2013 completed Maddison Mosesauer null, [facility] 06/14/2023 15:18:28 Hep A, ped/adol, 2 dose 11/09/2011 completed Madd[facility] Mosesauer null, [facility] 06/14/2023 15:18:28 Hib (PRP-OMP) 2004 completed Maddison Herrerarbauer null, [facility] 06/14/2023 15:18:28 Hib (PRP-OMP) 12/24/2005 completed Maddison Mosesauer null, [facility] 06/14/2023 15:18:28 Hib (PRP-OMP) 01/12/2005 completed Maddison Mosesauer null, [facility] 06/14/2023 15:18:28 Meningococcal MCV4O 12/02/2015 completed Maddison Mosesauer null, [facility] 06/14/2023 15:18:28 Meningococcal MCV4O 01/19/2022 completed Maddison Mosesauer null, [facility] 06/14/2023 15:18:28 DTaP 12/24/2005 completed Maddison Mosesauer null, [facility] 06/14/2023 15:18:28 DTaP-Hep B-IPV 2004 completed Maddison Mosesauer null, [facility] 06/14/2023 15:18:28 DTaP-Hep B-IPV 01/12/2005 completed Maddison Herrerarbauer null, [facility] 06/14/2023 15:18:28 DTaP-Hep B-IPV 03/30/2005 completed Maddison Herrerarbauer null, [facility] 06/14/2023 15:18:28 Influenza, split virus, quadrivalent, PF 01/19/2022 completed Maddison Herrerarbauer null, [facility] 06/14/2023 15:18:28 Influenza, split virus, quadrivalent, PF 02/01/2023 completed Maddison Faustin [facility], [facility] 06/14/2023 15:18:28 Past Encounters Encounter ID Performer Location Encounter Start Date Encounter Closed Date Diagnosis/Indication Diagnosis SNOMED-CT Code Diagnosis ICD10 Code [id number] Danny Pickard MD [facility] [address] [place] [address] 12/24/2023 15:54:41 12/30/2023 15:39:13 Varicocele visible through skin 228096936 I86.1 Nocturnal enuresis 80826 08 N39.44 Health Concerns Section Related Observation LastModified by Organization Detai ls LastModified Time None Recorded Concern Status LastModified by Organization Details LastModified Time None Recorded Payers Encounter Date Sequence Insurance Name Policy Number Policy Jewell Covered Member ID Jewell Member ID Guarantor Name 12/24/2023 1 [place] [id number] Amparo Betancourt [id number] Dave Betancourt Notes Date Note Type Note Provider Name and Address Organization Details Recorded Time 12/24/2023 text/html HPI Notes: follow up enuresis, daytime doing fine and wetting most nights. taking gemtesa samples [facility] clear and PVR 89ml today. Danny Pickard MD [address], [place], [address], [facility] 12/24/2023 16:57:55
--- OUTSIDE RECORDS SUMMARY | 2024-02-05 18:41 | XMS_ITS | Continuity of Care Document ---
Author Organization [place]RE - [place] Celestine alex, [facility] Address [address] [place] [address] Care Team Providers Care Water Systems Designer Name Role Phone ABEBA GUERRERO (GUMARO) Primary Care Provider Assessment No assessment recorded. Plan of Treatment Reminders Order Date Submit Date Provider Last Modified By Organization Details Last Modified Time Details Appointments ESTABLISH ED 10 2023 03:40P M Not available Not available Not available Lab None recorded. Referral None recorded. Procedures bladder scan (PROC) 2023 024 [email or web address] [facility], [address], [address], [place], [address], 02/04/2024 16:42:11 Surgeries None recorded. Imaging None recorded. Medication Orders None recorded. Patient TargetsNo targets recorded. Patient Instructions Encounter Date Encounter Id Patient Instructions Last Modified By Organization Details Last Modified Time 02/04/2024 [id number] will finish the gemtesa and continue on obybutynin , plan follow up 8 weeks for recheck. [email or web address] Not available 02/04/2024 16:53:05 Reason for Referral None Reported. Results Created Date Observation Date Name Description Value Unit Range Abnormal Flag Note LastModifiedBy Organization Detail LastModifiedTime 02/04/20 24 02/04/2024 bladd er scan (PROC ) Volume (in mL) 289 Not Available [facility] [address], [place], [address], 01/29/2024 10:41:45 Result Notes None recorded. Problems Name Problem SNOMED Code Status Onset Date Resolution Date Notes Provider Name and Address Organization Details Recorded Time Varicocele visible through skin 990456879 Active 023 Moody brian MD [address] [place] [address],[address] [place] [address], [phone], [facility] 3 16:54:19 Nocturnal enuresis 6469907 Active 024 Danny Pickard MD [address] [place] [address],[address] [place] [address], [phone], [facility] 4 10:21:45 Problem Notes None recorded. Procedures Surgical History Date Name Laterality Status Provider Name and Address Organization Details Recorded Time 4 Bladder Scan completed Danny Pickard MD [address] [place] [address],[address] [place] [address], [phone], [facility] 02/04/2024 16:41:54 4 Bladder Scan completed Danny Pickard MD [address] [place] [address],[facility] [address], [place], [address], [facility] 12/24/2023 16:37:09 Imaging Results None recorded. [...] and Address Organization Details Last Updated DateTime 02/04/2024 175.26 cm 94 % 29.5 kg/m2 31424.47 g Danny Pickard MD [address] [facility] [address], [place], [address] 02/04/2024 16:36:02 Social History Question Answer Notes LastModified by Organizat ion Details LastModified Time Tobacco Smoking Status Never Smoker Valerie viveros [facility] 02/22/2023 15:33:50 What Is Your Level Of Alcohol Consumption? None Information not available 02/22/2023 What Is Your Level Of Caffeine Consumption? Heavy [email or web address] Information not available 11/14/2023 What Was The Date Of Your Most Recent Tobacco Screening? 02/04/2024 [email or web address] Information not available 02/04/2024 Do You Use [...] Details LastModified Time Maternal Grandmother Malignant melanoma [email or web address] Not available 11/13 10:01:51 Notes:None per patient Medical History Condition Response Other N High Blood Pressure N Kidney Stones N Lung Disease N Depression Y GERD/Acid Reflux N Diabetes N Sexually Transmitted Infection N Bleeding Disorder N Cancer N High Cholesterol N Heart Disease N Immunizations Vaccine Type Date Status Provider Name and Address Organization Details Recorded Time HPV9 12[facility]02[facility]2015 [facility] 15:18:28 [facility]14[facility] 15:18:28 MMR 09/17/2005 [facility] 15:18:28 MMR 09/20/2009 [facility]23 15:18:28 COVID-19, mRNA, LNP-S, PF, 30 mcg/0.3 mL dose 09/29/2020 [facility]23 15:18:28 COVID-19, mRNA, LNP-S, PF, 30 mcg/0.3 mL dose 10/20/2020 [facility]23 15:18:28 COVID-19, mRNA, LNP-S, PF, 30 mcg/0.3 mL dose, kayli-sucrose 07/24/2021 [facility]23 15:18:28 pneumococcal conjugate PCV 7 2004 [facility] 15:18:28 pneumococcal conjugate PCV 7 12/24/2005 [facility] 15:18:28 pneumococcal conjugate PCV 7 01/12/2005 completed Maddison viveros, [facility] 06/14/2023 15:18:28 pneumococcal conjugate PCV 7 03/30/2005 completed Maddison Mosesauer null, [facility] 06/14/2023 15:18:28 DTaP-IPV 09/20/2009 completed Maddison Faustin null, [facility] 06/14/2023 15:18:28 Tdap 12/02/2015 completed Maddison Faustin null, [facility] 06/14/2023 15:18:28 varicella 09/17/2005 completed Maddison Faustin null, [facility] 06/14/2023 15:18:28 varicella 09/20/2009 completed Maddison Faustin null, [facility] 06/14/2023 15:18:28 Influenza, split virus, trivalent, preservative 04/01/2006 completed Maddison viveros, [facility] 06/14/2023 15:18:28 Influenza, split virus, trivalent, preservative 04/29/2006 completed Maddison viveros, [facility] 06/14/2023 15:18:28 Hep A, ped/adol, 2 dose 10/09/2013 completed Maddison Faustin [facility] 06/14/2023 15:18:28 Hep A, ped/adol, 2 dose 11/09/2011 completed Maddison Faustin [facility] 06/14/2023 15:18:28 Hib (PRP-OMP) 2004 [facility] 15:18:28 Hib (PRP-OMP) 12/24/2005 completed Maddison Faustin null, [facility] 06/14/2023 15:18:28 Hib (PRP-OMP) 01/12/2005 [facility] 15:18:28 Meningococcal MCV4O 12/02/2015 completed Maddison Faustin null, [facility] 06/14/2023 15:18:28 Meningococcal MCV4O 01/19/2022 completed Maddison Faustin null, [facility] 06/14/2023 15:18:28 DTaP 12/24/2005 completed Maddison viveros, [facility] 06/14/2023 15:18:28 DTaP-Hep B-IPV 2004 completed Maddison viveros, [facility] 06/14/2023 15:18:28 DTaP-Hep B-IPV 01/12/2005 completed Maddison viveros, [facility] 06/14/2023 15:18:28 DTaP-Hep B-IPV 03/30/2005 completed Maddison viveros, [facility] 06/14/2023 15:18:28 Influenza, split virus, quadrivalent, PF 01/19/2022 completed Maddison viveros, [facility] 06/14/2023 15:18:28 Influenza, split virus, quadrivalent, PF 02/01/2023 completed Maddison viveros, [facility] 06/14/2023 15:18:28 Past Encounters Encounter ID Performer Location Encounter Start Date Encounter Closed Date Diagnosis/Indication Diagnosis SNOMED-CT Code Diagnosis ICD10 Code [id number] Danny Pickard MD [address] [address] [place] [address] 02/04/2024 16:24:36 02/05/2024 10:59:52 Varicocele visible through skin 181687116 I86.1 Nocturnal enuresis 92062 08 N39.44 Health Concerns Section Related Observation LastModified by Organization Detai ls LastModified Time None Recorded Concern Status LastModified by Organization Details LastModified Time None Recorded Payers Encounter Date Sequence Insurance Name Policy Number Policy Jewell Covered Member ID Jewell Member ID Guarantor Name 02/04/2024 1 [place] [id number] Amparo Betancourt [id number] Dave Betancourt Notes Date Note Type Note Provider Name and Address Organization Details Recorded Time 02/04/2024 text/html HPI Notes: follo w up enuresis, added oxybutynin ER 10mg last visit and on gemtesa too. PVR 289ml today but doing better with enuresis. Danny Pickard MD [address] [facility],[address], [place], [address], [facility] 02/04/2024 16:54:17
--- OUTSIDE RECORDS SUMMARY | 2024-02-05 18:41 | XMS_ITS | Continuity of Care Document ---
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 Plan of Treatment Reminders Order Date Submit Date Provider Last Modified By Organization Details Last Modified Time Details Appointments ESTABLISH ED 10 2023 03:40P M Not available Not available Not available Lab urinalysi s, dipstick 2023 024 [email or web address] [facility], [address], [address], [place], [address], 11/14/2023 10:24:22 Referral None recorded. Procedures bladder scan (PROC) 2023 024 [email or web address] [facility], [address], [address], [place], [address], 11/18/2023 09:40:55 Surgeries None recorded. Imaging None recorded. Medication Orders None recorded. Patient TargetsNo targets recorded. Patient Instructions Encounter Date Encounter Id Patient Instructions Last Modified By Organization Details Last Modified Time 11/14/2023 [id number] will try gemtesa and recheck in 6 weeks. [email or web address] Not available 11/14/2023 11:13:37 Reason for Referral None Reported. Results Created Date Observation Date Name Description Value Unit Range Abnormal Flag Note LastModifiedBy Organization Detail LastModifiedTime 11/14/19 24 11/14/2023 urina lysis , dipst ick Sp [place]-Stat us >=1.03 0 Not Available [address], [place], [address], 11/14/2023 10:15:21 11/14/19 24 11/14/2023 urina lysis , dipst ick pH-Status 5.5 Not Available [address], [place], [address], 11/14/2023 10:15:21 11/14/19 24 11/14/2023 urina lysis , dipst ick Urobilinogen -Status 0.2 Not Available [address], [place], [address], 11/14/2023 10:15:21 11/18/19 24 11/18/2023 bladd er scan (PROC ) Volume (in mL) 166 mL Not Available [address] [place], [place], [address], 11/14/2023 10:21:56 Result Notes None recorded. Problems Name Problem SNOMED Code Status Onset Date Resolution Date Notes Provider Name and Address Organization Details Recorded Time Varicocele visible through skin 653316978 Active 023 Moody brian MD [address] [place] [address],[address] [place] [address], [phone], [facility] 3 16:54:19 Nocturnal enuresis 9657970 Active 024 Danny Pickard MD [address] [place] [address],[address] [place] [address], [phone], [facility] 4 10:21:45 Problem Notes None recorded. Procedures Surgical History Date Name Laterality Status Provider Name and Address Organization Details Recorded Time 4 Bladder Scan completed Danny Pickard MD [address] [place] [address],[address], [address], [facility] 02/04/2024 16:41:54 Bladder Scan completed Danny Pickard MD [address] [facility] [address], [address], [facility] 12/24/2023 16:37:09 Imaging Results None [...] 11/14/2023 175.26 cm 94 % 29.5 kg/m2 21367.47 g Danny Pickard MD [address] [place] [address],[facility] [address], [address], [facility] 11/14/2023 10:00:28 Social History Question Answer Notes LastModified by Organizat ion Details LastModified Time Tobacco Smoking Status Never Smoker Valerie viveros [facility] 02/22/2023 15:33:50 What Is Your Level Of Alcohol Consumption? None Information not available 02/22/2023 What Is Your Level Of Caffeine Consumption? Heavy [email or web address] Information not available 11/14/2023 What Was The Date Of Your Most Recent Tobacco Screening? 02/04/2024 [email or web address] Information not available 02/04/2024 Do You Use [...] Details LastModified Time Maternal Grandmother Malignant melanoma Not available 11/13 10:01:51 Notes:None per patient Medical History Condition Response Other N High Blood Pressure N Kidney Stones N Lung Disease N Depression Y GERD/Acid Reflux N Sexually Transmitted Infection N Cancer N High Cholesterol N Diabetes N Bleeding Disorder N Heart Disease N Immunizations Vaccine Type Date Status Provider Name and Address Organization Details Recorded Time HPV9 12/02/2015 completed Maddison viveros [facility] 06/14/2023 15:18:28 HPV9 12/14/2016 ashley Mosesauer null, [facility] 06/14/2023 15:18:28 MMR 09/17/2005 completed Maddison Faustin null, [facility] 06/14/2023 15:18:28 MMR 09/20/2009 completed Maddison Faustin null, [facility] 06/14/2023 15:18:28 COVID-19, mRNA, LNP-S, PF, 30 mcg/0.3 mL dose 09/29/2020 completed Maddison Faustin null, [facility] 06/14/2023 15:18:28 COVID-19, mRNA, LNP-S, PF, 30 mcg/0.3 mL dose 10/20/2020 [facility] 15:18:28 COVID-19, mRNA, LNP-S, PF, 30 mcg/0.3 mL dose, kayli-sucrose 07/24/2021 [facility]23 15:18:28 pneumococcal conjugate PCV 7 2004 [facility]2023 15:18:28 pneumococcal conjugate PCV 7 12/24/2005 [facility]14[facility]2023 15:18:28 pneumococcal conjugate PCV 7 01/12/2005 [facility]/14/2023 15:18:28 pneumococcal conjugate PCV 7 03/30/2005 completed Maddison viveros, [facility] 06/14/2023 15:18:28 DTaP-IPV 09/20/2009 completed Maddison Faustin null, [facility] 06/14/2023 15:18:28 Tdap 12/02/2015 completed Maddison viveros, [facility] 06/14/2023 15:18:28 varicella 09/17/2005 [facility] 15:18:28 varicella 09/20/2009 [facility]14[facility]23 15:18:28 Influenza, split virus, trivalent, preservative 04/01/2006 completed Maddison Mosesauer null, [facility] 06/14/2023 15:18:28 Influenza, split virus, trivalent, preservative 04/29/2006 completed Maddison Mosesauer null, [facility] 06/14/2023 15:18:28 Hep A, ped/adol, 2 dose 10/09/2013 completed Maddison Mosesauer null, [facility] 06/14/2023 15:18:28 Hep A, ped/adol, 2 dose 11/09/2011 completed Maddison Mosesauer null, [facility] 06/14/[facility] 15:18:28 Hib (PRP-OMP) 2004 completed Maddison Mosesauer null, [facility] 06/14/2023 15:18:28 Hib (PRP-OMP) 12/24/2005 completed Maddison Mosesauer null, [facility] 06/14/2023 15:18:28 Hib (PRP-OMP) 01/12/2005 completed Maddison Mosesauer null, [facility] 06/14/2023 15:18:28 Meningococcal MCV4O 12/02/2015 completed Maddison Mosesauer null, [facility] 06/14/[facility] 15:18:28 Meningococcal MCV4O 01/19/2022 completed Maddison Mosesauer null, [facility] 06/14/2023 15:18:28 DTaP 12/24/2005 completed Maddison Mosesauer null, [facility] 06/14/[facility] 15:18:28 DTaP-Hep B-IPV 2004 completed Maddison Mosesauer null, [facility] 06/14/2023 15:18:28 DTaP-Hep B-IPV 01/12/2005 completed Maddison Mosesauer null, [facility] 06/14/2023 15:18:28 DTaP-Hep B-IPV 03/30/2005 completed Maddison Mosesauer null, [facility] 06/14/2023 15:18:28 Influenza, split virus, quadrivalent, PF 01/19/2022 completed Maddison Mosesauer null, [facility] 06/14/2023 15:18:28 Influenza, split virus, quadrivalent, PF 02/01/2023 completed Maddison viveros [facility] 06/14/2023 15:18:28 Past Encounters Encounter ID Performer Location Encounter Start Date Encounter Closed Date Diagnosis/Indication Diagnosis SNOMED-CT Code Diagnosis ICD10 Code [id number] Danny Pickard MD [facility] [address] [place] [address] 11/14/2023 09:47:56 11/15/2023 09:03:26 Varicocele visible through skin 623321051 I86.1 Nocturnal enuresis 86184 08 N39.44 Health Concerns Section Related Observation LastModified by Organization Detai ls LastModified Time None Recorded Concern Status LastModified by Organization Details LastModified Time None Recorded Payers Encounter Date Sequence Insurance Name Policy Number Policy Jewell Covered Member ID Jewell Member ID Guarantor Name 11/14/2023 1 [place] [id number] Amparo Betancourt [id number] Dave Betancourt Notes Date Note Type Note Provider Name and Address Organization Details Recorded Time 11/14/2023 text/html HPI Notes: seeing for a new problem today- started to have worsening enuresis about 5 months ago. happens almost every night. daytime control is OK but has urgency. UA clear and PVR 166ml today. no heme/dysuria. no trouble with bowel control Danny Pickard MD [address] [facility] [address] [facility],[address], [place], [address], [facility] 11/14/2023 10:25:19
--- OUTSIDE RECORDS SUMMARY | 2024-02-05 18:41 | XMS_ITS | Data Portability ---
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 Plan of Treatment Reminders Order Date Submit Date Provider Last Modified By Organization Details Last Modified Time Details Appointments ESTABLISH ED 10 2023 03:40P M Not available Not available Not available Lab urinalysi s, dipstick 2023 024 [email or web address] [facility], [facility] [facility], [address] [facility], [place], [id number], 11/14/2023 10:24:22 urinalysi s, dipstick 2023 024 [facility], [facility] [facility], [address], [place], [address], 12/24/2023 16:38:45 Referral None recorded. Procedures bladder scan (PROC) 2023 024 SANDEEP [facility], [address] [facility] [address], [address], [place], [id number], 11/18/2023 09:40:55 bladder scan (PROC) 2023 024 [facility], [facility] [facility], [address], [place], [id number], 12/24/2023 16:38:43 bladder scan (PROC) 2023 [facility], [address], [address], [place], [address], 02/04/2024 16:42:11 Surgeries None recorded. Imaging US, duplex, scrotum, complete 2022 [facility], [address], [place], [address], 06/14/2023 13:19:04 Medication Orders oxybutyni n chloride ER 10 mg tablet,ex tended release 24 hr 2023 [facility], [address] [facility], [place], [address], 12/24/2023 17:18:44 Patient TargetsNo targets recorded. Patient Instructions Encounter Date Encounter Id Patient Instructions Last Modified By Organization Details Last Modified Time 02/22/2023 [id number] Exam suggests left varicocele. I've asked Dave to continue self-exams and we'll update a scrotal US in 3 months, and have them assess the mass found with duplex, to confirm my exam findings. Reassurance given. I'll see him for repeat exam after US performed. Not available 02/22/2023 16:55:38 06/14/2023 [id number] Unchanged exam, unbothered patient, reassuring / unchanged imaging. We reviewed elective excision (just because), but neither he nor I have a meaningful reason to do it. He'll observe, serially examine, optional repeat US / exam with me in Feb 2024, sooner should things change. Not available 06/14/2023 15:38:38 11/14/2023 [id number] will try gemtesa and recheck in 6 weeks. [email or web address] Not available 11/14/2023 11:13:37 12/24/2023 [id number] will try adding oxybutynin ER 10mg daily continue gemtesa and plan recheck in 6 weeks. [email or web address] Not available 12/24/2023 16:57:40 02/04/2024 [id number] will finish the gemtesa and continue on obybutynin , plan follow up 8 weeks for recheck. [email or web address] Not available 02/04/2024 16:53:05 Reason for Referral None Reported. Results Created Date Observation Date Name Description Value Unit Range Abnormal Flag Note LastModifiedBy Organization Detail LastModifiedTime 11/14/19 24 11/14/2023 urina lysis , dipst ick Sp [place]-Stat us >=1.03 0 Not Available [address] [facility], [place], [address], 11/14/2023 10:15:21 11/14/19 24 11/14/2023 urina lysis , dipst ick pH-Status 5.5 Not Available [address], [place], [address], 11/14/2023 10:15:21 11/14/19 24 11/14/2023 urina lysis , dipst ick Urobilinogen -Status 0.2 Not Available [address], [place], [address], 11/14/2023 10:15:21 11/18/19 24 11/18/2023 bladd er scan (PROC ) Volume (in mL) 166 mL Not Available [address], [place], [address], 11/14/2023 10:21:56 12/24/19 24 12/24/2023 bladd er scan (PROC ) Volume (in mL) 89 Not Available [place] [address], [place], [address], 12/13/2023 10:44:18 12/24/19 24 12/24/2023 urina lysis , dipst ick Color-Status Yellow Not Available [address], [place], [address], 12/13/2023 10:44:17 12/24/19 24 12/24/2023 urina lysis , dipst ick Clarity-Stat us Clear Not Available [address], [place], [address], 12/13/2023 10:44:17 12/24/19 24 12/24/2023 urina lysis , dipst ick Sp [place]-Stat us 1.020 Not Available [address], [place], [address], 12/13/2023 10:44:17 12/24/19 24 12/24/2023 urina lysis , dipst ick pH-Status 6.5 Not Available [address], [place], [address], 12/13/2023 10:44:17 12/24/19 24 12/24/2023 urina lysis , dipst ick Nitrates-Sta tus negati ve Not Available [address], [place], [address], 12/13/2023 10:44:17 12/24/19 24 12/24/2023 urina lysis , dipst ick Blood-Status Negati ve Not Available [address], [place], [place], [address], 12/13/2023 10:44:17 12/24/19 24 12/24/2023 urina lysis , dipst ick Leuko-Status Negati ve Not Available [place] [address], [place], [address], 12/13/2023 10:44:17 12/24/19 24 12/24/2023 urina lysis , dipst ick Specimen Type Voided Not Available [place] [address], [place], [address], 12/13/2023 10:44:17 02/04/20 24 02/04/2024 bladd er scan (PROC ) Volume (in mL) 289 Not Available [address], [place], [address], 01/29/2024 10:41:45 02/21/20 23 02/12/2023 US, scrot um No observ ation record ed. [email or web address] Not Available 2022 11:48:11 05/16/20 23 05/16/2023 US, scrot um No observ ation record ed. SANDEEP [facility] [address], [place], [address], 05/17/2023 12:02:22 06/14/19 24 05/16/2023 US, duple x, scrot um, compl ete No observ ation record ed. [email or web address] [facility] [address], [place], [address], 06/14/2023 13:19:04 Result Notes None recorded. Problems Name Problem SNOMED Code Status Onset Date Resolution Date Notes Provider Name and Address Organization Details Recorded Time Varicocele visible through skin 803449998 Active 023 Moody brian MD [address] [place] [address],[facility] [address], [place], [address], [facility] 3 16:54:19 Nocturnal enuresis 8928103 Active 024 Danny Pickard MD [address] [place] [address],[address], [place], [address], [facility] 4 10:21:45 Problem Notes None recorded. Procedures Surgical History Date Name Laterality Status Provider Name and Address Organization Details Recorded Time 4 Bladder Scan completed Danny Pickard MD [address] [place] [address],[address] [place] [address], [address], [facility] 02/04/2024 16:41:54 4 Bladder Scan completed Danny Pickard MD [address] [place] [address],[address], [address], [facility] 12/24/2023 16:37:09 Imaging Results Imaging Date Name Status LastModified by Organiz ation Details LastModified Time 02/12/2023 US, scrotum completed [email or web address] Information n ot available 02/20/2023 11:48:11 05/16/2023 US, scrotum completed SANDEEP [facility] [address], [place], [address], 05/17/2023 12:02:22 05/16/2023 US, duplex, scrotum, complete completed [email or web address] [facility] [address] [place], [address], 06/14/2023 13:19:04 Procedure Notes None recorded. Medical [...] 02/22/2023 172.72 cm 30.4 kg/m2 97 % 46008.47 g Valerie Gaspar [facility] 02/22/2023 15:32:32 Date Recorded Body height Body mass index (BMI) Body mass index (BMI) Percentile per age and sex Body weight Provider Name and Address Organization Details Last Updated DateTime 06/14/2023 172.72 cm 30.4 kg/m2 95.54 % 74328.47 g Maddison Faustin [facility] 06/14/2023 15:18:23 Date Recorded Body height Body mass index (BMI) Percentile per age and sex Body mass index (BMI) Body weight Provider Name and Address Organization Details Last Updated DateTime 11/14/2023 175.26 cm 94 % 29.5 kg/m2 12963.47 g Danny Pickard MD [address] [place] [address],[address] 11/14/2023 10:00:28 Date Recorded Body height Body mass index (BMI) Percentile per age and sex Body mass index (BMI) Body weight Provider Name and Address Organization Details Last Updated DateTime 12/24/2023 175.26 cm 94 % 29.5 kg/m2 10961.47 g Danny Pickard MD [address] [place] [address],[address] [facility] 12/24/2023 16:35:21 Date Recorded Body height Body mass index (BMI) Percentile per age and sex Body mass index (BMI) Body weight Provider Name and Address Organization Details Last Updated DateTime 02/04/2024 175.26 cm 94 % 29.5 kg/m2 99486.47 g Danny Pickard MD [address] [place] [address],[address] 02/04/2024 16:36:02 Social History Question Answer Notes LastModified by Organizat ion Details LastModified Time Tobacco Smoking Status Never Smoker Valerie viveros [facility] 02/22/2023 15:33:50 What Is Your Level Of Alcohol Consumption? None Information not available 02/22/2023 What Is Your Level Of Caffeine Consumption? Heavy [email or web address] Information not available 11/14/2023 What Was The Date Of Your Most Recent Tobacco Screening? 02/04/2024 [email or web address] Information not available 02/04/2024 Do You Use [...] Details LastModified Time Maternal Grandmother Malignant melanoma [email or web address] Not available 11/13 10:01:51 Notes:None per patient Medical History Condition Response Other N High Blood Pressure N Kidney Stones N Depression Y Sexually Transmitted Infection N Cancer N Bleeding Disorder N Lung Disease N GERD/Acid Reflux N High Cholesterol N Diabetes N Heart Disease N Immunizations Vaccine Type Date Status Provider Name and Address Organization Details Recorded Time [facility]02[facility] 15:18:28 HPV9 12/14/2016 [facility] 15:18:28 MMR 09/17/2005 [facility] 15:18:28 MMR 09/20/2009 [facility] 15:18:28 COVID-19, mRNA, LNP-S, PF, 30 mcg/0.3 mL dose 09/29/2020 [facility] 15:18:28 COVID-19, mRNA, LNP-S, PF, 30 mcg/0.3 mL dose 10/20/2020 [facility] 15:18:28 COVID-19, mRNA, LNP-S, PF, 30 mcg/0.3 mL dose, kayli-sucrose 07/24/2021 [facility] 15:18:28 pneumococcal conjugate PCV 7 2004 [facility] 15:18:28 pneumococcal conjugate PCV 7 12/24/2005 [facility] 15:18:28 pneumococcal conjugate PCV 7 01/12/2005 [facility] 15:18:28 pneumococcal conjugate PCV 7 03/30/2005 [facility] 15:18:28 DTaP-IPV 09/20/2009 completed Maddison viveros, [facility] 06/14/2023 15:18:28 Tdap 12/02/2015 completed Maddison Faustin null, [facility] 06/14/2023 15:18:28 varicella 09/17/2005 completed Maddison Faustin null, [facility] 06/14/2023 15:18:28 varicella 09/20/2009 completed Maddison Faustin null, [facility] 06/14/2023 15:18:28 Influenza, split virus, trivalent, preservative 04/01/2006 completed Maddison Josuéauer null, [facility] 06/14/2023 15:18:28 Influenza, split virus, trivalent, preservative 04/29/2006 completed Maddison Ramin null, [facility] 06/14/2023 15:18:28 Hep A, ped/adol, 2 dose 10/09/2013 completed Maddison Faustin null, [facility] 06/14/2023 15:18:28 Hep A, ped/adol, 2 dose 11/09/2011 completed Maddison Faustin null, [facility] 06/14/2023 15:18:28 Hib (PRP[facility]OMP) 2004 [facility] 15:18:28 Hib (PRP-OMP) 12/24/2005 completed Maddison Faustin null, [facility] 06/14/2023 15:18:28 Hib (PRP-OMP) 01/12/2005 completed Maddison Faustin null, [facility] 06/14/2023 15:18:28 Meningococcal MCV4O 12/02/2015 completed Maddison Faustin null, [facility] 06/14/2023 15:18:28 Meningococcal MCV4O 01/19/2022 completed Maddison Faustin null, [facility] 06/14/2023 15:18:28 DTaP 12/24/2005 completed Maddison Faustin null, [facility] 06/14/2023 15:18:28 DTaP-Hep B-IPV 2004 completed Maddison Faustin null, [facility] 06/14/2023 15:18:28 DTaP-Hep B-IPV 01/12/2005 completed Maddison viveros, [facility] 06/14/2023 15:18:28 DTaP-Hep B-IPV 03/30/2005 completed Maddison Herrerasailaja jackeline, [facility] 06/14/2023 15:18:28 Influenza, split virus, quadrivalent, PF 01/19/2022 completed Maddison Herrerasailaja jackeline, [facility] 06/14/2023 15:18:28 Influenza, split virus, quadrivalent, PF 02/01/2023 completed Maddison Herreradimplegloria viveros, [facility] 06/14/2023 15:18:28 Past Encounters Encounter ID Performer Location Encounter Start Date Encounter Closed Date Diagnosis/Indication Diagnosis SNOMED-CT Code Diagnosis ICD10 Code [id number] MD [place] [facility] [address] [facility] [place] [id number] 02/22/2023 15:05:16 02/28/2023 12:02:18 Varicocele visible through skin 319862770 I86.1 [id number] MD [place] [facility] [address] [facility] [place] [id number] 06/14/2023 15:14:28 06/14/2023 15:42:51 Varicocele visible through skin 383719963 I86.1 [id number] [facility] [place] [address] 11/14/2023 09:47:56 11/15/2023 09:03:26 Varicocele visible through skin 337577051 I86.1 Nocturnal enuresis 87771 08 N39.44 [id number] [facility] [place] [address] 12/24/2023 15:54:41 12/30/2023 15:39:13 Varicocele visible through skin 887910973 I86.1 Nocturnal enuresis 98139 08 N39.44 [id number] [facility] [address] [place] [address] 02/04/2024 16:24:36 02/05/2024 10:59:52 Varicocele visible through skin 651229987 I86.1 Nocturnal enuresis 22713 08 N39.44 Health Concerns Section Related Observation LastModified by Organization Detai ls LastModified Time None Recorded Concern Status LastModified by Organization Details LastModified Time None Recorded Advance Directives Directive None Recorded Payers Encounter Date Sequence Insurance Name Policy Number Policy Jewell Covered Member ID Jewell Member ID Guarantor Name 02/22/2023 2 [place] [id number] Dave Betancourt [id number] Dave Betancourt 02/22/2023 1 [place] [id number] Amparo Betancourt [id number] Dave Betancourt 06/14/2023 1 [place] [id number] Amparo Betancourt [id number] Dave Betancourt 06/14/2023 2 [place] [id number] Dave Betancourt [id number] Dave Betancourt 11/14/2023 1 [place] [id number] Amparo Betancourt [id number] Dave Betancourt 12/24/2023 1 [place] [id number] Amparo De La [id number] Dave Betancourt 02/04/2024 1 [place] [id number] Amparo De La [id number] Dave Betancourt Notes Date Note Type Note Provider Name and Address Organization Details Recorded Time 02/22/2023 text/html HPI Notes: 17M presents after recent discovery of mass inside left scrotum (in Sep). Scrotal US obtained which showed normal testes/flow, and a soft tissue mass 3cm adjacent to the left testis. Imaging suggests cystic structures, I see no duplex was done on the mass in question. Patient has no complaints. Moody Dawn MD [address] [facility], [place], [address], [facility] 02/22/2023 16:55:44 06/14/2023 text/html HPI Notes: [...] the exam is unchanged. Moody Dawn MD [address] [place] [address],[address], [place], [address], [facility] 06/14/2023 15:38:44 11/14/2023 text/html HPI Notes: anali sun for a new problem today- started to have worsening enuresis about 5 months ago. happens almost every night. daytime control is OK but has urgency. UA clear and PVR 166ml today. no heme/dysuria. no trouble with bowel control Danny Pickard MD [address] [place] [address],[address], [place], [address], [facility] 11/14/2023 10:25:19 12/24/2023 text/html HPI Notes: follo w up enuresis, daytime doing fine and wetting most nights. taking gemtesa samples UA clear and PVR 89ml today. Danny Pickard MD [address] [place] [address],[address], [place], [address], [facility] 12/24/2023 16:57:55 02/04/2024 text/html HPI Notes: follo w up enuresis, added oxybutynin ER 10mg last visit and on gemtesa too. PVR 289ml today but doing better with enuresis. Danny Pickard MD [address] [place] [address],[address], [place], [address], [facility] 02/04/2024 16:54:17
--- OUTSIDE RECORDS SUMMARY | 2024-02-05 18:42 | XMS_ITS | Clinical Summary ---
Author Organization [facility] Address [place], [place] [address] Care Team Providers Care Motor Vehicle Lecturer Name Role Phone David Costa MD Primary Care Provider [phone] Allergies Active Allergy Reactions Criticality Noted Date [...] Tic 10/23/2010 Nocturnal enuresis 10/23/2010 Nevus 10/23/2010 Overview (12/24/2014): Brownish black nevus on back left of head that measures 8 mm in diameter as of 09/2013 and 12/2014. Middle ear infection 09/21/2008 Resolved Problems Problem Noted Date Diagnosed Date Resolved Date Middle ear infection 09/21/2008 009 Immunizations Name Administration Dates Next Due COVID-19 VACCINE SPIKEVAX (M ODERNA 50MCG/0.5ML) 12YO+ PFS 05/01/2023 COVID-19 vaccine (ThingMagic NTech 30mcg/0.3mL) 12YO+ REHA-SUCROSE PF, MDV 07/24/2021 COVID-19 vaccine (EUDOWEBBio NTech 30mcg/0.3mL) PF, MDV 10/20/2020,09/29/2020 DTaP 12/24/2005 [id number]-DnwE-ZGN (Pediarix) 03/30/2005,01/12/2005,0 2004 DTaP-IPV (Kinrix) 09/20/2009 HIB PRP-OMP (PedvaxHIB) 12/24/2005,01/12/2005, HPV 9 (Gardasil 9) 12/14/2016,12/02/2015 Hepatitis A (Peds) 10/09/2013,11/09/2011 Influenza, IIV4 02/01/2023,01/19/2022 MENINGOCOCCAL VACCINE 2 VIAL 2MO-55YO (MENVEO) 01/19/2022,12/02/2015 MMR 09/20/2009,09/17/2005 Pneumococcal conj 7-Valent (Prevnar 7) 0 12/24/2005,03/30/2005,01/12/2005,11/15 [...] Comments Blood Pressure 130/77 05/01/2023 3:49 PM GEODETIC TECHNICIAN Pulse 80 05/01/2023 3:49 PM GEODETIC TECHNICIAN Temperature 36.8 ??C (98.3 ??F) 05/01/2023 3:49 PM CS T Respiratory Rate 20 09/19/2010 9:02 AM CDT Oxygen Saturation 95% 05/01/2023 3:49 PM GEODETIC TECHNICIAN Inhaled Oxygen Concentration - - Weight 93.4 kg (206 lb) 05/01/2023 3:49 PM GEODETIC TECHNICIAN Height 170.2 cm (5' 7.01) 02/01/2023 3:46 PM CD T Body Mass Index - - Plan of Treatment Upcoming Encounters Date Type Department Care Team (Late st Contact Info) Description 02/18/2024 9:10 AM CDT Office Visit [facility] [address] [place] [address] David Costa MD [address] [place] [address] Health Maintenance Due Date Last Done Comments [...] 07/24/2021, 10/20/2020, Additional history exists Care Teams Motor Vehicle Lecturer Relationship Specialty Start Date End Date David Costa MD [address] [place] [address] PCP - General 10/08/05
--- OUTSIDE RECORDS SUMMARY | 2024-02-05 18:42 | XMS_ITS | Patient Health Record ---
Author Organization [facility] Address [address] [facility] [address] [place] [address] Care Team Providers Care Client Server Developer Name Role Phone Igor MALAGON, David Primary Care Provider [phone] AFUA MEJIA, HARINDER, DAVID Unavailable Allergies Allergen [...] W/U Status Risk Notes Problem Tourette's disorder (1405449) Tourette's disorder (307.23) Active confirmed Problem Constipation (65330662) Constipation (K59.00) Active confirmed Problem Urgent desire to urinate (20605636) Urinary urgency (R39.15) Active confirmed Problem Nocturnal enuresis (5463619) Nocturnal Enuresis (N39.44) Active confirmed Problem Urinary incontinence (994678295) Urinary incontinence (R32) Active confirmed Problem Disorder of kidney and/or ureter (099673385) 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 confirmed Problem Voiding dysfunction (856127319) Voiding dysfunction (N39.8) Active confirmed Plan Of Treatment Future Test Test Name Order Date US Renal (SASHA) 02/01/2017 Insurance Providers Payer Name Payer Address Payer Phone Subscriber Number Group Number Insured Name Patient Relationship to Insured Coverage Start Date Coverage End Date [facility] [address] [address] [place] [address] [phone] [id number] Dave Betancourt Self - patient is the insured Medical (General) History Medical History History ICD Code Born @ full term, 6 lb 6 oz Neurological: Tourette's Gastrointestinal: Constipation Gennitourinary: Nocturnal en uresis, Dysfunctional voiding, Urinary incontinence, Uriinary urgency, Pelviectasis Other: Mood & affect disturbance Surgical History Surgery Date(Month/Year) BMT's 07/23 BMT's 11/26 Undescended testicle completed in [facility] ie 2009 Hospitalization History Reason Date(Month/Year) Dehydration
== END 2024-02-05 19:38 | disposition home or self-care (01) ==
LOC: ED 18:39
PROVIDERS: Emergency Provider Family Medicine; PCP Family Medicine
DX: S61.412A Laceration without foreign body of left hand, initial encounter (principal); W26.0XXA Contact with knife, initial encounter
CPT/HCPCS: 12001; 99282; 99283

== ENCOUNTER 2024-12-03 11:59 | Outpatient (CLI) | payer BC, SELFPAY | END 2024-12-03 12:00 | disposition home or self-care (01) | PROVIDERS: PCP Family Medicine; Visit Provider Family Medicine | DX: F29 Unspecified psychosis not due to a substance or known physiological condition (principal); R41.0 Disorientation, unspecified | CPT/HCPCS: A0425; A0427 ==

== ENCOUNTER 2024-12-03 13:20 | Emergency (ER) | payer BC, SELFPAY ==
--- OUTSIDE RECORDS SUMMARY | 2024-12-03 13:24 | XMS_ITS | Data Portability ---
Author Organization [facility] Address [address] [place] [address] Care Team Providers Care Pipe Line Gauger Name Role Phone [facility] ([facility]) Primary Care Provider Assessment No assessment recorded. Plan of Treatment Reminders Order Date Submit Date Provider Last Modified By Organization Details Last Modified Time Details Appointments None recorded. Lab urinalysis , dipstick 2023 024 [facility], [facility], [address], [place], [address], 4 16:38:45 urinalysis , dipstick 2023 024 [email or web address] [facility], [address], [address], [place], [address], 4 10:24:22 Referral None recorded. Procedures bladder scan (PROC) 2023 024 [email or web address] [facility], [address], [address], [place], [address], 4 16:42:11 bladder scan (PROC) 2023 024 [facility], [address], [address], [place], [address], 16:38:43 bladder scan (PROC) 2023 [facility], [address] [facility], [address], [place], [address], 09:40:55 Surgeries None recorded. Imaging US, duplex, scrotum, complete 2022 [facility], [address], [place], [address], 13:19:04 Medication Orders oxybutynin chloride ER 10 mg tablet,ext ended release 24 hr 2023 [facility], [address], [place], [address], 17:18:44 Patient TargetsNo targets recorded. Patient Instructions Encounter Date Encounter Id Patient Instructions Last Modified By Organization Details Last Modified Time 02/22/2023 [id number] Exam suggests left varicocele. I've asked Dave to continue self-exams and we'll update a scrotal US in 3 months, and have them assess the mass found with duplex, to confirm my exam findings. Reassurance given. I'll see him for repeat exam after US performed. Not available 02/22/2023 16:55:38 06/14/2023 [id number] Unchanged exam, unbothered patient, reassuring / unchanged imaging. We reviewed elective excision (just because), but neither he nor I have a meaningful reason to do it. He'll observe, serially examine, optional repeat US / exam with me in Feb 2024, sooner should things change. Not available 06/14/2023 15:38:38 11/14/2023 [id number] will try gemtesa and recheck in 6 weeks. [email or web address] Not available 11/14/2023 11:13:37 12/24/2023 [id number] will try adding oxybutynin ER 10mg daily continue gemtesa and plan recheck in 6 weeks. [email or web address] Not available 12/24/2023 16:57:40 02/04/2024 [id number] will finish the gemtesa and continue on obybutynin , plan follow up 8 weeks for recheck. [email or web address] Not available 02/04/2024 16:53:05 Reason for Referral None Reported. Results Created Date Observation Date Name Description Value Unit Range Abnormal Flag Note LastModifiedBy Organization Detail LastModifiedTime 11/14/19 24 11/14/2023 urina lysis , dipst ick Sp [place]-Stat us >=1.03 0 Not Available [address], [place], [address], 11/14/2023 10:15:21 11/14/19 24 11/14/2023 urina lysis , dipst ick pH-Status 5.5 Not Available [address], [place], [address], 11/14/2023 10:15:21 11/14/19 24 11/14/2023 urina lysis , dipst ick Urobilinogen -Status 0.2 Not Available [address], [place], [address], 11/14/2023 10:15:21 11/18/19 24 11/18/2023 bladd er scan (PROC ) Volume (in mL) 166 mL Not Available [address] [place], [place], [address], 11/14/2023 10:21:56 12/24/19 24 12/24/2023 bladd er scan (PROC ) Volume (in mL) 89 Not Available [address], [place], [place], [address], 12/13/2023 10:44:18 12/24/19 24 12/24/2023 urina lysis , dipst ick Color-Status Yellow Not Available [address], [place], [address], 12/13/2023 10:44:17 12/24/19 24 12/24/2023 urina lysis , dipst ick Clarity-Stat us Clear Not Available [address], [place], [address], 12/13/2023 10:44:17 12/24/19 24 12/24/2023 urina lysis , dipst ick Sp Meriden-Stat us 1.020 Not Available [address], [place], [address], 12/13/2023 10:44:17 12/24/19 24 12/24/2023 urina lysis , dipst ick pH-Status 6.5 Not Available [address], [place], [address], 12/13/2023 10:44:17 12/24/19 24 12/24/2023 urina lysis , dipst ick Nitrates-Sta tus negati ve Not Available [address], [place], [address], 12/13/2023 10:44:17 12/24/19 24 12/24/2023 urina lysis , dipst ick Blood-Status Negati ve Not Available [address], [place], [address], 12/13/2023 10:44:17 12/24/19 24 12/24/2023 urina lysis , dipst ick Leuko-Status Negati ve Not Available [place] [address], [place], [address], 12/13/2023 10:44:17 12/24/19 24 12/24/2023 urina lysis , dipst ick Specimen Type Voided Not Available [place] [address] [facility] [address], [place], [address], 12/13/2023 10:44:17 02/04/20 24 02/04/2024 bladd er scan (PROC ) Volume (in mL) 289 Not Available [address], [place], [address], 01/29/2024 10:41:45 02/21/20 23 02/12/2023 US, scrot um No observ ation record ed. [email or web address] Not Available 2022 11:48:11 05/16/20 23 05/16/2023 US, scrot um No observ ation record ed. [email or web address] [facility] [address], [place], [address], 05/17/2023 12:02:22 06/14/19 24 05/16/2023 US, duple x, scrot um, compl ete No observ ation record ed. [email or web address] [facility] [address] [facility], [place], [address], 06/14/2023 13:19:04 Result Notes None recorded. Problems Name Problem SNOMED Code Status Onset Date Resolution Date Notes Provider Name and Address Organization Details Recorded Time Varicocele visible through skin 470946354 Active 023 Moody brian MD [address] [address], [place], [address], [place] [facility] 3 16:54:19 Nocturnal enuresis 2523127 Active 024 Danny Pickard MD [address] [facility], [place], [address], [facility] 4 10:21:45 Problem Notes None recorded. Procedures Surgical History Date Name Laterality Status Provider Name and Address Organization Details Recorded Time 4 Bladder Scan cancelled Silverio Samuel [facility] 03/18/2024 12:22:31 4 Bladder Scan completed Danny Pickard MD [address] [place] [address],[address], [place], [address], [facility] 02/04/2024 16:41:54 4 Bladder Scan completed Danny Pickard MD [address] [place] [address],[address], [place], [address], [facility] 12/24/2023 16:37:09 Imaging Results None recorded. [...] mass index (BMI) Body mass index (BMI) [Percentile] Per age and sex Body weight Provider Name and Address Organization Details Last Updated DateTime 06/14/2023 172.72 cm 30.4 kg/m2 95.54 % [address].[address] [facility] 06/14/2023 15:18:23 Date Recorded Body height Body mass index (BMI) [Percentile] Per age and sex Body mass index (BMI) Body weight Provider Name and Address Organization Details Last Updated DateTime 11/14/2023 175.26 cm 94 % 29.5 kg/m2 49500.47 g Danny Pickard MD [address] [place] [address], [address] [place] [address] [facility] 11/14/2023 10:00:28 Date Recorded Body height Body mass index (BMI) [Percentile] Per age and sex Body mass index (BMI) Body weight Provider Name and Address Organization Details Last Updated DateTime 12/24/2023 175.26 cm 94 % 29.5 kg/m2 14692.47 g Danny Pickard MD [address] [place] [address],[address], [address] [place] [address] [facility] 12/24/2023 16:35:21 Date Recorded Body height Body mass index (BMI) [Percentile] Per age and sex Body mass index (BMI) Body weight Provider Name and Address Organization Details Last Updated DateTime 02/04/2024 175.26 cm 94 % 29.5 kg/m2 13681.47 g Danny Pickard MD [address] [facility], [place], [address] [facility] 02/04/2024 16:36:02 Date Recorded Body height Body mass index (BMI) Body mass index (BMI) [Percentile] Per age and sex Body weight Provider Name and Address Organization Details Last Updated DateTime 02/22/2023 172.72 cm 30.4 kg/m2 97 % [address].[address] [facility] 02/22/2023 15:32:32 Social History Question Answer Notes LastModified by Organizat ion Details LastModified Time Tobacco Smoking Status Never Smoker Valerie viveros [facility] 02/22/2023 15:33:50 What Is Your Level Of Caffeine Consumption? Heavy [email or web address] Information not available 11/14/2023 What Was The Date Of Your Most Recent Tobacco Screening? 02/04/2024 [email or web address] Information not available 02/04/2024 Has Tobacco Cessation Counseling Been Provided? No Information not available 02/22/2023 Sex: Unknown Functional Status Question Answer Note LastModified by Organizat ion Details LastModified Time Do you use any illicit or recreational drugs? No Information not available 02/22/2023 Do you or have you ever used any other forms of tobacco or nicotine? No Information not available 02/22/2023 What is your level of alcohol consumption? None Information not available 02/22/2023 Mental Status None recorded. Family History Relationship Description Onset Age of this Age Resolved Age Notes LastModified by Organization Details LastModified Time Maternal Grandmother Malignant melanoma [email or web address] Not available 11/13 10:01:51 Notes:None per patient Medical History Condition Response Sexually Transmitted Infection N Diabetes N Other N Bleeding Disorder N High Blood Pressure N Kidney Stones N High Cholesterol N GERD/Acid Reflux N Heart Disease N Cancer N Lung Disease N Depression Y Immunizations Vaccine Type Date Status Note Provider Nam e and Address Organization Details Recorded Time HPV9 [address] [facility] 06/14/2023 15:18:28 HPV9 7 completed Maddison Josuéauer null, [facility] 06/14/2023 15:18:28 MMR 6 completed Maddison [facility]auer null, [facility] 06/14/2023 15:18:28 MMR 0 completed Maddison Herreradimpleauer null, [facility] 06/14/2023 15:18:28 COVID-19, mRNA, LNP-S, PF, 30 mcg/0.3 mL dose 1 completed Maddison Herrerarbauer null, [facility] 06/14/2023 15:18:28 COVID-19, mRNA, LNP-S, PF, 30 mcg/0.3 mL dose 1 completed Maddison Herreradimpleauer null, [facility] 06/14/2023 15:18:28 COVID-19, mRNA, LNP-S, PF, 30 mcg/0.3 mL dose, kayli-sucrose 2 completed Maddison Mosesauer null, [facility] 06/14/2023 15:18:28 pneumococcal conjugate PCV 7 5 completed Maddison Mosesauer null, [facility] 06/14/2023 15:18:28 pneumococcal conjugate PCV 7 6 completed Maddison Josuéauer null, [facility] 06/14/2023 15:18:28 pneumococcal conjugate PCV 7 5 completed Maddison Mosesauer null, [facility] 06/14/2023 15:18:28 pneumococcal conjugate PCV 7 5 completed Maddison Javierrbauer null, [facility] 06/14/2023 15:18:28 DTaP-IPV 0 completed Maddison Mosesauer null, [facility] 06/14/2023 15:18:28 Tdap 6 completed Maddison Mosesauer null, [facility] 06/14/2023 15:18:28 varicella 6 completed Maddison Mosesauer null, [facility] 06/14/2023 15:18:28 varicella 0 completed Maddison Mosesauer null, [facility] 06/14/2023 15:18:28 Influenza, split virus, trivalent, preservative 6 completed Maddison Mosesauer null, [facility] 06/14/2023 15:18:28 Influenza, split virus, trivalent, preservative 6 completed Maddison Mosesauer null, [facility] 06/14/2023 15:18:28 Hep A, ped/adol, 2 dose 4 completed Maddison Herrerarbauer null, [facility] 06/14/2023 15:18:28 Hep A, ped/adol, 2 dose 2 completed Maddison Herreradimpleauer null, [facility] 06/14/2023 15:18:28 Hib (PRP-OMP) 5 completed Maddison Mosesauer null, [facility] 06/14/2023 15:18:28 Hib (PRP-OMP) 6 completed Maddison Mosesauer null, [facility] 06/14/2023 15:18:28 Hib (PRP-OMP) 5 completed Maddison Herreradimpleauer null, [facility] 06/14/2023 15:18:28 Meningococcal MCV4O 6 completed Maddison Mosesauer null, [facility] 06/14/2023 15:18:28 Meningococcal MCV4O 2 completed Maddison Herreradimpleauer null, [facility] 06/14/2023 15:18:28 DTaP 6 completed Maddison Herrerarbauer null, [facility] 06/14/2023 15:18:28 DTaP-Hep B-IPV 5 completed Maddison Herreradimpleauer null, [facility] 06/14/2023 15:18:28 DTaP-Hep B-IPV 5 completed Maddison Herrerarbauer null, [facility] 06/14/2023 15:18:28 DTaP-Hep B-IPV 5 completed Maddison Herrerarbauer null, [facility] 06/14/2023 15:18:28 Influenza, split virus, quadrivalent, PF 2 completed Maddison viveros, [facility] 06/14/2023 15:18:28 Influenza, split virus, quadrivalent, PF 3 completed Maddison viveros, [facility] 06/14/2023 15:18:28 Past Encounters Encounter ID Performer Location Encounter Start Date Encounter Closed Date Diagnosis/Indication Diagnosis SNOMED-CT Code Diagnosis ICD10 Code Diagnosis Note [id number] Moody Dawn MD [address] [place] [address] 02/22/2023 15:05:16 02/28/2023 12:02:18 Varicocele visible through skin 493930129 I86.1 [id number] Moody Dawn MD _[place] [address] [place] [address] 06/14/2023 15:14:28 06/14/2023 15:42:51 Varicocele visible through skin 608577064 I86.1 [id number] Danny Pickard MD [address] [place] [address] 11/14/2023 09:47:56 11/15/2023 09:03:26 Varicocele visible through skin 207080104 I86.1 Nocturnal enuresis 90914 08 N39.44 [id number] Danny Pickard MD [address] [place] [address] 12/24/2023 15:54:41 12/30/2023 15:39:13 Varicocele visible through skin 771302495 I86.1 Nocturnal enuresis 99515 08 N39.44 [id number] Danny Pickard MD [address] [place] [address] 02/04/2024 16:24:36 02/05/2024 10:59:52 Varicocele visible through skin 770002613 I86.1 Nocturnal enuresis 10566 08 N39.44 Health Concerns Section Related Observation LastModified by Organization Detai ls LastModified Time None Recorded Concern Status LastModified by Organization Details LastModified Time None Recorded Advance Directives Directive None Recorded Payers Insurance Date Sequence Insurance Name Policy Number Policy Jewell Covered Member ID Jewell Member ID Guarantor Name 01/30/2024 2 [place] [id number] Dave Betancourt [id number] Dave Betancourt 02/01/2024 1 [place] [id number] Amparo Betancourt [id number] Dave Betancourt 01/30/2024 2 [place] [id number] Dave Betancourt [id number] Dave Betancourt Notes Date Note Type Note Provider Name and Address Organization Details Recorded Time 02/22/2023 text/html 17M presents aft er recent discovery of mass inside left scrotum (in Sep). Scrotal US obtained which showed normal testes/flow, and a soft tissue mass 3cm adjacent to the left testis. Imaging suggests cystic structures, I see no duplex was done on the mass in question. Patient has no complaints. Moody Dawn MD [address] [place] [address],[address], [address], [facility] 02/22/2023 16:55:44 06/14/2023 text/html 17M following up for left hemiscrotal mass, palpated as a varicocele to me, in Feb 2023. Scrotal US obtained which showed normal testes/flow, and a soft tissue mass 3cm adjacent to the left testis. Imaging suggests cystic structures. Interval repeat shows stability, no internal echoing or Doppler evidence noted. Patient has no complaints, and think the exam is unchanged. Moody Dawn MD [address] [place] [address],[address], [place], [address], [facility] 06/14/2023 15:38:44 11/14/2023 text/html seeing for a new problem today- started to have worsening enuresis about 5 months ago. happens almost every night. daytime control is OK but has urgency. UA clear and PVR 166ml today. no heme/dysuria. no trouble with bowel control Danny Pickard MD [address] [place] [address],[address], [place], [address], [facility] 11/14/2023 10:25:19 12/24/2023 text/html follow up enuresis, daytime doing fine and wetting most nights. taking gemtesa samples UA clear and PVR 89ml today. Danny Pickard MD [address] [facility], [place], [address], [facility] 12/24/2023 16:57:55 02/04/2024 text/html follow up enuresis, added oxybutynin ER 10mg last visit and on gemtesa too. PVR 289ml today but doing better with enuresis. Danny Pickard MD [address] [facility],[address], [place], [address], [facility] 02/04/2024 16:54:17
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
--- OUTSIDE RECORDS SUMMARY | 2024-12-03 13:25 | XMS_ITS | Patient Health Record ---
Author Organization [facility] Address [address] [facility] [address] [place] [address] Care Team Providers Care Environmental Projects Advisor Name Role Phone Igor MALAGON, David Primary Care Provider [phone] Allergies Allergen (clinical drug ingredient) Drug/Non Drug Allergy documented on EMR Reaction Allergy Type Onset Date Status nickel Nickel ? Allergy Active Reason For Referral No Information Medications Medication SIG (Take, Route, Fr equency, Duration) Notes Start Date End Date Status Citalopram Hydrobromide Active Problems Problem Type SNOMED Code ICD Code Onset Dates Problem Status W/U Status Risk Notes Problem Tourette's disorder (3355828) Tourette's disorder (307.23) Active confirmed Problem Constipation (29510043) Constipation (K59.00) Active confirmed Problem Urgent desire to urinate (98963361) Urinary urgency (R39.15) Active confirmed Problem Nocturnal enuresis (1349967) Nocturnal Enuresis (N39.44) Active confirmed Problem Urinary incontinence (481098802) Urinary incontinence (R32) Active confirmed Problem Disorder of kidney and/or ureter (989086969) 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 confirmed Problem Voiding dysfunction (589968229) Voiding dysfunction (N39.8) Active confirmed Plan Of Treatment Future Test Test Name Order Date US Renal (SASHA) 02/01/2017 Insurance Providers Payer Name Payer Address Payer Phone Subscriber Number Group Number Insured Name Patient Relationship to Insured Coverage Start Date Coverage End Date [facility] [address] [address] [place] [address] [id number] Dave Betancourt Self - patient is the insured Medical (General) History Medical History History ICD Code Born @ full term, 6 lb 6 oz Neurological: Tourette's Gastrointestinal: Constipation Gennitourinary: Nocturnal en uresis, Dysfunctional voiding, Urinary incontinence, Uriinary urgency, Pelviectasis Other: Mood & affect disturbance Surgical History Surgery Date(Month/Year) BMT's 07/23 BMT's 11/26 Undescended testicle completed in [facility] 2009 Hospitalization History Reason Date(Month/Year) Dehydration
[2024-12-03 13:30] VITALS: BP 141/99; PULSE 72; RESP 16; TEMP 36.4; O2SAT 97; BMI 29.0
[2024-12-03 14:49] LABS: Appearance Urine Clear (Clear)
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
[2024-12-03 14:54] LABS: Hematocrit 45.3 % (37.0-53.0); Hemoglobin* 15.9 gm/dL (13.5-17.5); Immature Granulocytes Abs Auto 0.02 K/uL (0.00-0.30); Immature Granulocytes Pct Auto 0.3 %; Lymphocytes Absolute Auto 1.56 K/uL (0.90-2.90); Mean Corpuscular HGB Conc 35 gm/dL (32-36); Mean Corpuscular Hemoglobin 31 pg (26-34); Mean Corpuscular Volume 88 fL (80-100); RDW Coefficient of Variation % 12.0 % (11.5-15.5); Red Blood Count 5.18 m/uL (4.30-5.90); White Blood Count* 7.66 K/uL (4.50-11.00)
[2024-12-03 14:56] LABS: Cannabinoid Screen Urine Negative (Negative); Methamphetamines Screen Urine Negative (Negative); Tricyclic Antidepressant Urine Negative (Negative)
[2024-12-03 14:58] LABS: Slide Review Reflex No
[2024-12-03 15:07] LABS: Chloride* 104 mmol/L (96-114); Potassium* 4.0 mmol/L (3.6-5.1); Sodium* 140 mmol/L (135-149)
[2024-12-03 15:10] LABS: Anion Gap 12 mEq/L (7-15); Blood Urea Nitrogen* 24 mg/dL (5-24); Calcium* 10.2 mg/dL (8.4-10.6); Carbon Dioxide* 24 mmol/L (20-32); Creatinine* 1.0 mg/dL (0.5-1.5); Est. Creatinine Clearance* 110.17; Estimated Glomerular Filt Rate 111 ml/min; Glucose* 106 mg/dL (60-115)
[2024-12-03 15:22] LABS: SARS PCR* Negative SARS-CoV-2 (Negative)
[2024-12-03 15:25] LABS: Acetaminophen* < 10.0 ug/mL (10.0-30.0); Ethanol* < 0.01 % (0.01-0.03); Salicylate* < 1.0 mg/dL (1.0-10)
[2024-12-04] VITALS: BP 135/85; PULSE 79; RESP 16; TEMP 36.4; O2SAT 97
[2024-12-04 04:12] VITALS: BP 142/81; PULSE 71; RESP 16; TEMP 36.4; O2SAT 97
[2024-12-04 08:42] VITALS: BP 139/83; PULSE 72; RESP 22; TEMP 36.6; O2SAT 98
== END 2024-12-04 09:34 ==
PROVIDERS: Emergency Provider Student in an Organized Health Care Education/Training Program; PCP Family Medicine
DX: F23 Brief psychotic disorder (principal)
CPT/HCPCS: 36415; 80048; 80143; 80179; 80306; 81001; 82077; 84443; 85025; 87086; 87635; 99284; Q3014; A9270

== ENCOUNTER 2024-12-04 09:23 | Outpatient (CLI) | payer BC, SELFPAY | END 2024-12-04 09:24 | disposition home or self-care (01) | PROVIDERS: PCP Family Medicine; Visit Provider Internal Medicine | DX: F23 Brief psychotic disorder (principal) | CPT/HCPCS: A0425; A0428 ==